=== PATIENT | female | born 1930 | race Caucasian/White ===

== ENCOUNTER 2016-06-15 19:19 | Inpatient (IN) | payer MEDICARE, OTHER ==
[~2016-06-15] VITALS: Ht 165.1 cm; Wt 79.0 kg
[~2016-06-15 19:19] MED LIST: ACET-2047 PO; AMLO5TAB4 PO; ATOR20TA38 GTB; BISA-57 PO; BISA5TAB6 PO; CIPR500T4 PO; DIPH25CA6 PO; DOCU-144 PO; ENOX30DI10 SQ; FAMO-18 GTB; GABA100C14 PO; HYDR-906 PO; LOSA1TAB19 PO; MAGN400O4 PO; PANT40TA4 PO; RISP1TAB3 GTB; SENN-53 PO; SERT-165 GTB
[2016-06-15] MEDS ORDERED: CEFEPIME 2GM/50 ML (PMX) 50 ML IVPB STA (19:52)
[2016-06-15] MEDS ORDERED: SODIUM CHLORIDE 0.9% 1L BAG IV* STA (19:52)
[2016-06-15] MEDS ORDERED: VANCOMYCIN 1 GM (PMX) 250 ML IVPB ONE (20:00)
[2016-06-15 20:20] LABS: ADD UMIC YES; URINE BILIRUBIN (Dip) NEGATIVE (NEGATIVE); URINE BLOOD (Dip) 1+ (NEGATIVE); URINE COLOR YELLOW (YELLOW); URINE GLUCOSE (Dip) NEGATIVE (NEGATIVE); URINE KETONES (Dip) NEGATIVE (NEGATIVE); URINE LEUKOCYTE ESTERASE (Dip) 3+ (NEGATIVE); URINE NITRITE (Dip) NEGATIVE (NEGATIVE); URINE TOTAL PROTEIN (Dip) 1+ (NEGATIVE); URINE UROBILINOGEN (Dip) 0.2 E.U./dL (0.1-1.0)
[2016-06-15 20:26] LABS: ALBUMIN 3.3 g/dl (3.3-4.9)
[2016-06-15 20:27] LABS: CONDITION 1; HEMOGLOBIN 10.8 g/dl (12.0-16.0); LH ANALYZER COMMENTS 1; MEAN CORPUSCULAR HEMOGLOBIN 28.8 pg (29.0-33.0); MEAN CORPUSCULAR HGB CONC 32.7 g/dl (32.0-37.0); MEAN PLATELET VOLUME 8.8 fl (7.4-10.4); PLATELET COUNT 321 10^3/UL (140-440); POTASSIUM 4.7 mmol/L (3.5-5.1); RED BLOOD COUNT 3.75 10^6/ul (4.20-5.40); SUSPECT 1; UNCORRECTED WBC 30.2 10^3/ul (4.8-10.8); WHITE BLOOD COUNT 30.2 10^3/ul (4.8-10.8)
[2016-06-15 20:28] LABS: INR 1.15; PROTIME 14.7 Sec (12.2-14.2); PT RATIO 1.1
[2016-06-15 20:29] LABS: ALBUMIN/GLOBULIN RATIO 0.84; BILIRUBIN,INDIRECT 0.1 mg/dl (0-1.1); BILIRUBIN,TOTAL 0.1 mg/dl (0.2-1.3); CALCIUM 9.2 mg/dl (8.4-10.2); CREATININE 0.95 mg/dl (0.44-1.00); PARTIAL THROMBOPLASTIN TIME 31.9 Sec (25.0-35.0); TOTAL PROTEIN 7.2 g/dl (6.1-8.1)
[2016-06-15 20:30] LABS: BACTERIA,URINE MANY; SQUAMOUS EPITHELIAL CELL,UR MODERATE
[2016-06-15 20:41] LABS: TROPONIN-I 0.085 ng/ml (0.00-0.12)
[2016-06-15] MEDS ORDERED: CRAN450T7 GTB (20:41)
[2016-06-15 20:42] LABS: LYMPHOCYTES # 2.1 10^3/ul (0.8-2.9); MONOCYTE # 1.8 10^3/ul (0.3-0.9); NEUTROPHIL # 26.3 10^3/ul (1.6-7.5)
[2016-06-15] MEDS ORDERED: ASCO500S2 GTB (20:42)
[2016-06-15] MEDS ORDERED: LANT3I SC (20:42)
[2016-06-15] MEDS ORDERED: AMIN30LI GTB (20:46)
[2016-06-15] MEDS ORDERED: IPRA3AMP INHALATION (20:46)
[2016-06-15] MEDS ORDERED: MAG355OR14 GTB (21:04)
[2016-06-15] MEDS ORDERED: UDCOL GTB (21:14)
[2016-06-15 22:30] VITALS: TEMP 99.1
--- NOTE | 2016-06-15 22:59 | ERA ---
ER Documentation Chief Complaint Date/Time DATE: 06/15/16 TIME: 19:20 Chief Complaint sent from SNF for high WBC's and fever today HPI 78-year-old female history of Alzheimer's dementia, Parkinson's disease, diabetes mellitus type 2, hypertension, dyslipidemia, urinary tract infection and sepsis sent to the ED from [facility] for evaluation of fevers up to 101 and leukocytosis. According to family members she was in her usual state of health until 3 days ago and she has been developing fevers become increasingly weak and less responsive. No chest pain or palpitations. No shortness of breath or cough. No abdominal pain, vomiting or diarrhea. Decreasing responsiveness with increasing generalized weakness but no focal weakness or numbness. Fevers up to 101 treated with Tylenol and WBC today was 32,000. History is limited due to the patient's cognitive impairment. ROS All systems reviewed and are negative except as per history of present illness. Medications Home Meds Reported Medications Docusate Sodium* (Docusate Sodium* Liq) 50 Mg/5 Ml Liquid, 100 MG GTB BID, ML 06/15/16 Mag Hydrox/Al Hydrox/Simeth (Maalox Advanced Suspension) Unknown Strength Oral.susp, 30 ML GTB Q6H Y for PRN 06/15/16 Ipratropium-Albuterol (Ipratropium-Albuterol) 0.5-3 Mg/3 Ml Ampul.neb, 3 ML INHALATION Q6, #30 VIAL 06/15/16 Amino Acids/Protein Hydrolys (PRO-STAT LIQUID) 30 Ml Liquid.pkt, 30 ML GTB TID 06/15/16 Ascorbic Acid* (Vitamin C* Liq) 500 Mg/5 Ml Syrup, 500 MG GTB DAILY, ML 06/15/16 Insulin Glargine* (Lantus*) 100 Unit/Ml Soln, 10 UNIT SC QHS, #1 VIAL 06/15/16 Cranberry Fruit (CRANBERRY) 450 Mg Tablet, 450 MG GTB DAILY, TAB 06/15/16 Famotidine* (Pepcid*) 20 Mg Tablet, 20 MG GTB DAILY, #30 TAB 03/22/16 Atorvastatin Calcium* (Atorvastatin Calcium*) 20 Mg Tablet, 20 MG GTB QHS, #30 TAB 03/22/16 Sertraline Hcl* (Sertraline Hcl*) 100 Mg Tablet, 100 MG GTB DAILY, #30 TAB 03/07/16 Risperidone* (Risperidone*) 1 Mg Tablet, 1 MG GTB DAILY, TAB 03/07/16 Discontinued Reported Medications Ciprofloxacin Hcl* (Ciprofloxacin Hcl*) 500 Mg Tablet, 500 MG PO BID, #14 TAB 03/22/16 Gabapentin* (Gabapentin*) 100 Mg Capsule, 200 MG PO TID, #180 CAP 03/22/16 Magnesium Hydroxide* (Milk Of Magnesia*) 400 Mg/5 Ml Oral.susp, 30 ML PO DAILY Y for CONSTIPATION, ML 03/22/16 Hydrocodone/Acetaminophen ([place] 5-325 Tablet) 1 Each Tablet, 2 EACH PO Q6 Y for SEVERE PAIN LEVEL 7-10, TAB 03/22/16 Hydrocodone/Acetaminophen ([place] 5-325 Tablet) 1 Each Tablet, 1 EACH PO Q6 Y for MODERATE PAIN LEVEL 4-6, TAB 03/22/16 Enoxaparin Sodium* (Lovenox*) 30 Mg/0.3 Ml Disp.syrin, 30 MG SQ DAILY, SYR 03/22/16 Docusate Sodium* (Colace*) 100 Mg Capsule, 100 MG PO BID, #60 CAP 03/22/16 Bisacodyl* (Dulcolax*) 5 Mg Tablet.dr, 5 MG PO DAILY, TAB 03/22/16 Acetaminophen* (Acetaminophen*) 650 Mg Tablet, 650 MG PO Q6H Y for PAIN AND OR ELEVATED TEMP, #30 TAB 03/22/16 Amlodipine Besylate* (Norvasc*) 5 Mg Tablet, 5 MG PO DAILY, TAB 03/07/16 Losartan-Hydrochlorothiazide (Losartan-HCTZ) 50-12.5 Mg Tab, 1 TAB PO DAILY, TAB 03/07/16 Diphenhydramine Hcl* (Diphenhydramine Hcl*) 25 Mg Capsule, 25 MG PO TID Y for ITCHING, CAP 03/07/16 Sennosides* (Senna Lax*) 8.6 Mg Tablet, 2 TAB PO DAILY, TAB 03/07/16 Bisacodyl* (Bisacodyl*) 5 Mg Tablet.dr, 5 MG PO DAILY, TAB 03/07/16 Pantoprazole* (Pantoprazole*) 40 Mg Tablet.dr, 40 MG PO DAILY, TAB 03/07/16 Allergies Allergies: Coded Allergies: No Known Allergy (Unverified , 06/15/16) PMhx/Soc Reviewed in chart. As per HPI. half-way facility resident. History of Surgery: Yes (Recent R hip fx 03/07/16 s/p ORIF R hip 03/09/16) Anesthesia Reaction: No Hx Neurological Disorder: Yes (alzheimers) Hx Respiratory Disorders: No Hx Cardiac Disorders: Yes (bradycardia) Hx Psychiatric Problems: Yes (depression) Hx Miscellaneous Medical Probl: Yes (Dementia, Alzheimers, Bradycardia, Depression, GERD, HLD) Hx Alcohol Use: No Hx Substance Use: No Hx Tobacco Use: No Smoking Status: Unknown if ever smoked FmHx Reviewed in chart. Not relevant to presenting complaint. Physical Exam Vitals Vital Signs Date Time Temp Pulse Resp B/P Pulse Ox O2 Delivery O2 Flow Rate FiO2 06/15/16 22:30 99.1 79 20 126/52 95 Nasal Cannula 2.0 06/15/16 20:20 Nasal Cannula 2 06/15/16 19:45 99.5 89 20 115/43 90 Physical Exam Const: Elderly, ill-appearing Head: Atraumatic Eyes: Normal Conjunctiva ENT: Normal External Ears, Nose and Mouth. Mucous membranes are dry. Neck: Full range of motion. No JVD. No meningismus. Resp: Breath sounds diminished at the bases but otherwise Cardio: Tachycardic, regular rate and rhythm, no murmurs Abd: Soft, non tender, non distended. Normal bowel sounds. No rebound or guarding. No masses or abnormal pulsations. G-tube. Skin: No petechiae or rashes Back: No midline or flank tenderness Ext: No cyanosis. 1+ edema. No calf swelling or tenderness. Neur: Lethargic but arousable. No facial droop. No focal deficit observed. Result Diagram: 06/15/16194906/15/161949 Results 24 hrs Laboratory Tests Test 06/15/16 00:03 06/15/16 19:50 06/15/16 20:12 06/15/16 21:25 Lactic Acid Level 1.6mmol/L 1.3mmol/L 1.4mmol/L Activated Partial Thromboplast Time 31.9Sec Alanine Aminotransferase (ALT/SGPT) 13IU/L Albumin 3.3g/dl Albumin/Globulin Ratio 0.84 Alkaline Phosphatase 129IU/L Anion Gap 19 Aspartate Amino Transf (AST/SGOT) 25IU/L Blood Morphology Comment Blood Urea Nitrogen 53mg/dl Calcium Level 9.2mg/dl Carbon Dioxide Level 30mmol/L Chloride Level 99mmol/L Creatinine 0.95mg/dl Differential Comment Direct Bilirubin 0.00mg/dl Globulin 3.90g/dl Glucose Level 147mg/dl Hematocrit 33.0% Hemoglobin 10.8g/dl INR International Normalized Ratio 1.15 Indirect Bilirubin 0.1mg/dl Lymphocytes # 2.110^3/ul Lymphocytes % 7.0% Mean Corpuscular Hemoglobin 28.8pg Mean Corpuscular Hemoglobin Concent 32.7g/dl Mean Corpuscular Volume 88.0fl Mean Platelet Volume 8.8fl Monocytes # 1.810^3/ul Monocytes % 6.0% Neutrophils # 26.310^3/ul Neutrophils % 87.0% Platelet Count 47492^3/UL Potassium Level 4.7mmol/L Prothrombin Time 14.7Sec Prothrombin Time Ratio 1.1 Red Blood Count 3.7510^6/ul Red Cell Distribution Width 17.0% Sodium Level 143mmol/L Total Bilirubin 0.1mg/dl Total Protein 7.2g/dl Troponin I 0.085ng/ml White Blood Count 30.210^3/ul Urine Bacteria MANY Urine Bilirubin NEGATIVE Urine Clarity SLIGHTLY CLOUDY Urine Color YELLOW Urine Glucose NEGATIVE% Urine Hemoglobin 1+ Urine Ketones NEGATIVE Urine Leukocyte Esterase 3+ Urine Microscopic RBC 2-5/HPF Urine Microscopic WBC >200/HPF Urine Nitrite NEGATIVE Urine Specific [place] 1.015 Urine Squamous Epithelial Cells MODERATE Urine Total Protein 1+ Urine Urobilinogen 0.2 E.U./dL Urine pH 7.0 Current Medications Medications (Trade) Dose Ordered Sig/Oscar Route PRN Reason Start Time Stop Time Status Last Admin Dose Admin Sodium Chloride 1860 ml 1,860 ml BOLUS OVER 2 HOURS STAT IV* 06/15/16 19:52 06/15/16 19:54 DC 06/15/16 20:31 Cefepime HCl 50 ml @ 100 mls/hr ONCE STAT IVPB 06/15/16 19:52 06/15/16 20:21 DC 06/15/16 20:31 Vancomycin HCl (Vancocin) 250 ml @ 125 mls/hr ONCE ONCE IVPB 06/15/16 20:00 06/15/16 21:59 DC 06/15/16 21:00 RHYTHM STRIP INTERPRETATION: Sinus tachycardia. Ventricular rate 102. Indication: Sepsis. EKG: TIME: 19: 44. Sinus rhythm. Ventricular rate 89. Normal SD interval. QRS duration 160 ms per incomplete right bundle branch block. Right ventricular hypertrophy. No ectopy. No acute ST segment elevation or depression. EP Interpretation: Abnormal EKG. IMAGING: PROCEDURE: XR Chest. CLINICAL INDICATION: Possible sepsis. TECHNIQUE: Single frontal view of the chest was obtained COMPARISON: 04/05/2016. FINDINGS: Cardiomegaly with mild pulmonary vascular congestion and patchy lung base air space disease. There is no pleural effusion or pneumothorax. Demineralization and degenerative changes in bilateral shoulders, right greater than left. IMPRESSION: Cardiomegaly with mild failure. RPTAT: UU Physician Iliana Date Time Electronically viewed and signed by Physician Iliana on 06/15/2016 20:34 RS/ Procedures/MDM DOCUMENTS REVIEWED: ED nurse, prior ED, prior records, alf facility records MEDICAL DECISION MAKIN-year-old female history of Alzheimer's dementia, Parkinson's disease, diabetes mellitus type 2, hypertension, dyslipidemia, urinary tract infection and sepsis sent to the ED from [facility] for evaluation of fevers up to 101 and leukocytosis. Patient with systemic inflammatory response syndrome and sepsis secondary to urinary tract infection but no severe sepsis or septic shock. Normal saline 30 cc/kg bolus given over 2 hours and antibiotics after cultures. Patient be admitted to telemetry for further evaluation and management. Counseled family regarding diagnosis, diagnostic results and plan for admission. CALLS/CONSULTS: Time 22:15, Dr. Montanez PATIENT CARE TRANSITIONED: Time: 22:15, Dr. Montanez. Departure Diagnosis: Primary Impression: Fever Qualified Code: R50.9 - Fever, unspecified fever cause Additional Impressions: Sepsis Qualified Code: A41.9 - Sepsis, due to unspecified organism Urinary tract infection Qualified Code: N39.0 - Urinary tract infection without hematuria, site unspecified Parkinsons disease Dementia Qualified Code: F03.90 - Dementia without behavioral disturbance, unspecified dementia type Dehydration Condition: Serious EUN HAN MD Jun 15, 2016 22:59
[2016-06-15] MEDS ORDERED: ACETAMINOPHEN 325 MG TAB PO PRN (23:00)
[2016-06-15] MEDS ORDERED: ONDANSETRON 4 MG INJ IV PRN (23:00)
[2016-06-15 23:30] VITALS: Ht 165.1 cm; Wt 79.0 kg
[2016-06-16] VITALS (14 sets, daily range): BP systolic 98–130; BP diastolic 37–86; PULSE 76–85; RESP 15–21
[2016-06-16] MEDS ORDERED: GLUCAGON 1 MG INJ IM PRN
[2016-06-16] MEDS ORDERED: DEXTROSE 50% 50 ML SYRINGE IV PRN ×2
[2016-06-16] MEDS ORDERED: GLUCOSE GEL 15 GRAM TUBE PO PRN ×2
[2016-06-16] MEDS ORDERED: GLUCOSE GEL 15 GRAM TUBE BUCCAL PRN
[2016-06-16] MEDS ORDERED: **FLU VACCINE PREVIOUSLY DISPENSED XX PRN (04:30)
[2016-06-16] MEDS: INSULIN ASPART [NOVOLOG] 3 ML PEN SC SCH ×4 (05:57→17:03)
--- NOTE | 2016-06-16 08:11 | RADRPT ---
PROCEDURE: XR Chest. CLINICAL INDICATION: Possible sepsis. TECHNIQUE: Single frontal view of the chest was obtained COMPARISON: 04/05/2016. FINDINGS: Cardiomegaly with mild pulmonary vascular congestion and patchy lung base air space disease. There is no pleural effusion or pneumothorax. Demineralization and degenerative changes in bilateral shoulders, right greater than left. IMPRESSION: Cardiomegaly with mild failure. RPTAT: UU Physician Iliana Date Time Electronically viewed and signed by Aquilino Acosta Physician on 06/15/2016 20:34 RS/
[2016-06-16] MEDS ORDERED: CIPROFLOXACIN 400MG/D5W 200 ML IVPB SCH (09:00)
[2016-06-16] MEDS: DOCUSATE SODIUM 10 MG/ML (10ML CUP) GTB SCH ×2 (09:05→22:17)
[2016-06-16] MEDS: FAMOTIDINE 20 MG TAB GTB SCH (09:05)
[2016-06-16] MEDS: RISPERIDONE 1 MG TAB GTB SCH (09:05)
[2016-06-16] MEDS: ASCORBIC ACID 500 MG TAB GTB SCH (09:05)
[2016-06-16] MEDS: HEPARIN 5,000 UNIT/0.5 ML SYG SC SCH ×2 (09:11→22:22)
[2016-06-16] MEDS: SERTRALINE 100 MG TAB GTB SCH (10:11)
[2016-06-16] MEDS ORDERED: LOPERAMIDE 2 MG CAP PO ONE (12:00)
[2016-06-16] MEDS ORDERED: VANCOMYCIN IV PER PHARMACY XX SCH (12:00)
[2016-06-16] MEDS ORDERED: ALBUTEROL/IPRATROPIUM (NEB) 3 ML AMP INH SCH (12:00)
[2016-06-16] MEDS ORDERED: AL HYDROX/MG HYDROX/SIMETH 30 ML CUP PO PRN (12:30)
[2016-06-16] MEDS ORDERED: NON-FORMULARY/PATIENT OWN MED (Amino Acids/Protein Hydrolys (Pro-Stat Liquid) 30 ML) GTB SCH (13:00)
[2016-06-16] MEDS: SOD CHLORIDE 0.9% 1,000 ML IV SCH (13:33)
[2016-06-16] MEDS: CEFEPIME 2GM/50 ML (PMX) 50 ML IVPB SCH ×2 (13:34→22:17)
--- NOTE | 2016-06-16 15:03 | HP ---
DATE OF ADMISSION: 06/15/2016 TIME SEEN: 3:30 CHIEF COMPLAINT: Fever with elevated white count. HISTORY OF PRESENT ILLNESS: The patient is an 86-year-old female with a history of diabetes, hyperte nsion, dyslipidemia, Alzheimer dementia, Parkinson's disease ____ half-way facility with a fe claudia of 101 and leukocytosis. The patient ____ and noted to be less responsive and weak. When she pr esents to the ER she had a temperature of 99.5 but her white count was 30,000. A urinalysis consist ent with ____ urine ____. The patient was given vancomycin and cefepime ____ and REVIEW OF SYSTEMS: Unable to ____ because of patient's dementia. PAST MEDICAL HISTORY: As per HPI. PAST SURGICAL HISTORY: Hip surgery. SOCIAL HISTORY: No reported history of tobacco, alcohol or illicit drug use. ALLERGIES: NO KNOWN DRUG ALLERGIES. HOME MEDICATIONS: 1. Atrovent. 2. Lipitor. 3. Risperidone. 4. Sertraline. 5. Colace. 6. ____. 7. MiraLax. 8. Insulin. 9. Vitamin C. 10. ____. PHYSICAL EXAMINATION: VITAL SIGNS: Stable. GENERAL: No acute distress. She is ____. HEENT: No JVD. Pupils are reactive to light. CARDIOVASCULAR: Regular rate and rhythm. LUNGS: Clear. ABDOMEN: Soft, nontender. No grimaces noted on palpation. Positive bowel sounds. EXTREMITIES: No edema. LABORATORY: WBC 30,000. Hemoglobin 10.8, BUN 53. Otherwise, CBC and CMP within normal limits. IMPRESSION: 1. Sepsis as evidenced by leukocytosis and tachypnea secondary to severe urinary tract infection. 2. Urinary tract infection. 3. History of Alzheimer's dementia. 4. Hypertension. 5. Dyslipidemia. 6. Diabetes. 7. Depression. PLAN: She will be placed on IV antibiotic. We will follow up on the blood culture and urine cultur e as well as stool culture results. She will be continued with her home medication with adjustment as needed. Consider infectious disease consult. Dictated By: BEKAH PEMBERTON/WHITNEY Conf#: [id number] DID#: [id number]
--- NOTE | 2016-06-16 15:17 | PN ---
DATE: 06/16/2016 06/16/2016 SUBJECTIVE: The patient had no acute events overnight. OBJECTIVE VITAL SIGNS: Stable. GENERAL: The patient is lying in bed, has what looks like a resting tremor but otherwise no acute d istress. HEENT: Pupils equal, round, react to light. Extraocular muscles intact. NECK: Supple, no thyromegaly. LUNGS: Clear to auscultation bilaterally. CARDIOVASCULAR: S1, S2 heard. No rubs or gallops. ABDOMEN: Soft, nontender, nondistended. Normal bowel sounds. No rebound or guarding. MUSCULOSKELETAL: No lower extremity edema bilaterally. NEUROLOGIC: No focal deficits. LABORATORY DATA: There is no new CBC or basic metabolic panel from this morning. ASSESSMENT AND PLAN: This is an 86-year-old [facility] secondary to urinary tract infection. 1. Sepsis, again secondary to urinary tract infection. Continue broad spectrum antibiotics. Follo w up final culture results, get an ID consult, Tylenol p.r.n. pain and fevers, IV fluids as well. S he is also having fevers. 2. History of type 2 diabetes. Continue to monitor for now. She is on sliding scale insulin. Fol low up A1c. 3. History of Alzheimer dementia. She is on Sertraline and Risperidone. Continue to monitor for n ow. 4. High cholesterol. Continue statin. 5. Prior urinary tract infection. Again, we are going to get an ID consult for that. 6. Hypertension. Continue to monitor for now. She should be on hydralazine p.r.n. Monitor vital signs very carefully. 7. Gastrointestinal prophylaxis. H2 shin. 8. Deep venous thrombosis prophylaxis. Heparin subcutaneously. Dictated By: DANILO HONEYCUTT Conf#: [id number] DID#: [id number]
[2016-06-16] MEDS: VANCOMYCIN 750 MG in SOD CHLORIDE 0.9% 150 ML IVPB SCH (17:03)
--- NOTE | 2016-06-16 17:57 | CONS ---
DATE OF ADMISSION: 06/15/2016 DATE OF CONSULTATION: 06/16/2016 TYPE OF CONSULTATION: Infectious Disease. REASON FOR CONSULTATION: Antibiotic management. HISTORY OF PRESENT ILLNESS: Medina Davies is an 86-year-old [place] female with numerou s problems who comes in with fever and leukocytosis. The patient's past problems include: 1. Adult-onset diabetes mellitus. 2. Hypertension. 3. Dyslipidemia. 4. Alzheimer dementia. 5. Severe Parkinson disease. She presents now with a fever of 101 and leukocytosis. On admission, her white count was 30.2, H an d H of 10.8 and 33, platelet count of 321,000. BUN and creatinine are 53 over 0.95. Her urine is g reater than 200 white cells per high-power field. She has 3+ leukocytosis. Chest x-ray shows cardi omegaly with mild failure. Urine culture is too young to evaluate. The patient was started on vanc omycin and cefepime. PAST MEDICAL HISTORY: Operations as outlined. FAMILY HISTORY: Noncontributory. SOCIAL HISTORY: She does not smoke, drink or abuse drugs. ALLERGIES: NONE TO PENICILLIN, SULFA OR FOODS. SURGICAL HISTORY: She had hip surgery in the past. MEDICATIONS: Per chart. REVIEW OF SYSTEMS: Noncontributory. PHYSICAL EXAMINATION: GENERAL: The patient is a well-developed, well-nourished elderly female who has severe tremors. VITAL SIGNS: Stable. She is afebrile. SKIN: Without generalized rash. HEENT: Within normal limits. NECK: Supple. LYMPH NODES: None palpable. CHEST: Decreased breath sounds at the bases. HEART: Without murmur or gallop. ABDOMEN: Soft, nontender without organosplenomegaly or masses. EXTREMITIES: Without cyanosis, clubbing or edema. RECTAL AND GENITAL: Deferred. NEUROLOGIC: The patient has severe Parkinson disease. She also has senile dementia. IMPRESSION AND PLAN: The patient has blood cultures, urine cultures, stool cultures done. She is o n vancomycin and cefepime. She has a urinary tract infection and will tailor her antibiotics once w e get the results back. I will dictate my findings to the hospitalists. Dictated By: NAT JAMISON MD, JD/WHITNEY Conf#: [id number] DID#: [id number]
[2016-06-16] MEDS ORDERED: VANCOMYCIN 1.25 GM in SOD CHLORIDE 0.9% 250 ML IVPB SCH (18:00)
[2016-06-16] MEDS ORDERED: INSULIN GLARGINE [LANtus] 3 ML PEN SC SCH (21:00)
[2016-06-16] MEDS: ALBUTEROL/IPRATROPIUM (NEB) 3 ML AMP INH SCH (21:34)
[2016-06-16] MEDS: ATORVASTATIN 20 MG TAB GTB SCH (22:17)
[2016-06-16] MEDS: INSULIN GLARGINE [LANtus] 3 ML PEN SC SCH (22:51)
[2016-06-17] VITALS (12 sets, daily range): BP systolic 90–130; BP diastolic 51–89; PULSE 70–91; RESP 15–20
[2016-06-17] MEDS: SOD CHLORIDE 0.9% 1,000 ML IV SCH ×4 (01:50→23:18)
[2016-06-17] MEDS: ALBUTEROL/IPRATROPIUM (NEB) 3 ML AMP INH SCH ×4 (02:00→21:00)
[2016-06-17] MEDS: INSULIN ASPART [NOVOLOG] 3 ML PEN SC SCH ×4 (05:27→17:21)
[2016-06-17 07:38] LABS: BASOPHILS % 0.1 % (0.0-2.0); EOSINOPHILS # 0.2 10^3/ul (0.0-0.5); EOSINOPHILS % 1.1 % (0.0-7.0); HEMATOCRIT 26.9 % (37.0-47.0); LYMPHOCYTES % 10.4 % (15.0-51.0); MEAN CORPUSCULAR HEMOGLOBIN 29.5 pg (29.0-33.0); MEAN CORPUSCULAR HGB CONC 33.4 g/dl (32.0-37.0); MEAN CORPUSCULAR VOLUME 88.5 fl (82.0-101.0); MEAN PLATELET VOLUME 8.9 fl (7.4-10.4); MONOCYTE # 0.1 10^3/ul (0.3-0.9); MONOCYTES % 0.4 % (0.0-11.0); NEUTROPHIL # 17.3 10^3/ul (1.6-7.5); PLATELET COUNT 289 10^3/UL (140-440); RED BLOOD COUNT 3.04 10^6/ul (4.20-5.40); RED CELL DISTRIBUTION WIDTH 17.1 % (11.5-14.5); UNCORRECTED WBC 19.7 10^3/ul (4.8-10.8); WHITE BLOOD COUNT 19.7 10^3/ul (4.8-10.8)
[2016-06-17 07:41] LABS: CONDITION 1; LH ANALYZER COMMENTS 1
[2016-06-17 08:52] LABS: CALCIUM 8.5 mg/dl (8.4-10.2); CREATININE 0.84 mg/dl (0.44-1.00); POTASSIUM 4.4 mmol/L (3.5-5.1)
[2016-06-17] MEDS ORDERED: NON-FORMULARY/PATIENT OWN MED (Cranberry Fruit (Cranberry) 450 MG) GTB SCH (09:00)
[2016-06-17] MEDS: DOCUSATE SODIUM 10 MG/ML (10ML CUP) GTB SCH ×2 (09:00→21:13)
[2016-06-17] MEDS: FAMOTIDINE 20 MG TAB GTB SCH (09:52)
[2016-06-17] MEDS: RISPERIDONE 1 MG TAB GTB SCH (09:52)
[2016-06-17] MEDS: SERTRALINE 100 MG TAB GTB SCH (09:52)
[2016-06-17] MEDS: ASCORBIC ACID 500 MG TAB GTB SCH (09:52)
[2016-06-17] MEDS: HEPARIN 5,000 UNIT/0.5 ML SYG SC SCH ×2 (09:53→21:23)
[2016-06-17] MEDS: CEFEPIME 2GM/50 ML (PMX) 50 ML IVPB SCH ×2 (09:55→21:22)
--- NOTE | 2016-06-17 10:10 | CONS ---
DATE OF ADMISSION: 06/15/2016 DATE OF CONSULTATION: 06/17/2016 PALLIATIVE CARE CONSULTATION HISTORY OF PRESENT ILLNESS: This is an 86-year-old female who was admitted to [facility] with sepsis syndrome. We have an incomplete database. There are no family members at the [facility] and everything that I am dictating is based upon review of the patient's medical records. Es sentially she was seen in the emergency room for mental status changes, leukocytosis, febrile to 101 degrees, a white blood cell count of 30,000, and a UA consistent with greater than 200 white blood cells per high power field, 3+ leukocytosis. Chest x-ray is still pending. The patient was seen an d examined, and started on broad spectrum IV antibiotic coverage. Infectious disease was called, Dr Ramya Harrison, who has seen and evaluated the patient. Apparently, the patient has a history of alzheimers dementia and Parkinson's disease. She was noncommunicative when I saw her in the room, ephraim moya to answer any questions. She does track me only. She is a FULL CODE, according to the [facility]. MEDICATIONS: Please refer to reconciliation sheets. ALLERGIES: NO KNOWN DRUG ALLERGIES. MAJOR MEDICAL PROBLEMS IN THE PAST: Type 2 diabetes, hypertension, dyslipidemia, dementia secondary to Parkinson's disease, presumably. SOCIAL HISTORY: Apparently lives in a [place] [facility] unit. FAMILY HISTORY: Unknown. REVIEW OF SYSTEMS: Cannot be obtained. PHYSICAL EXAMINATION: GENERAL: Shows a well-nourished, well-developed female, who appears in no major acute distress. VITAL SIGNS: Blood pressure 119/57, pulse of 73 and regular, respirations of 18, temperature 98.9 d egrees. HEENT: She is normocephalic and atraumatic. Anicteric, acyanotic. CHEST: On examination chest shows bilateral clear breath sounds throughout both lung viera. COR: S1, S2, without S3, S4, murmur, gallop or rub. Normal rate, normal rhythm. ABDOMEN: On examination abdomen grossly benign, without organomegaly, masses, rebound. Peritoneal s igns grossly on examination. ASSESSMENT AND PLAN: This is an 86-year-old female who presents to [facility] wit h sepsis syndrome, but she is not hemodynamically compromised. I will contact family members and sc hedule a family conference as soon as possible to establish ongoing level of care. This patient giordano s not appear to be in any acute major distress and looks like she will survive this hospitalization, but I will speak to family members about her code status. She is extremely high risk of readmissio n with the same diagnosis, having presented with her first diagnosis of sepsis syndrome. Dictated By: WIL PARRISH MD LP/NTS Conf#: [id number] DID#: [id number]
--- NOTE | 2016-06-17 14:44 | PN ---
Date/Time of Note Date/Time of Note DATE: 06/17/16 TIME: 14:34 Assessment/Plan VTE Prophylaxis VTE Prophylaxis Intervention: heparin Lines/Catheters IV Catheter Type (from Nrs): Peripheral IV Urinary Cath still in place: Yes Reason Cath still needed: other (indicate) Assessment/Plan Assessment/Plan 1. Urinary tract infection, on maxipine/vanco, awaiting for culture 2. Sepsis, IVF and antibiotics 3. Diabetes mellitus, on insulins 3. Alzheimer dementia. She is on Sertraline and Risperidone. 4. High cholesterol. Continue statin. 5. Tremor, likely Parkinson's 6. Hypertension. hypotension now 7. Dysphagia, s/p PEG with tube feeding 8. Gastrointestinal prophylaxis. H2 shin. 9. Deep venous thrombosis prophylaxis. Heparin subcutaneously. Subjective 24 Hr Interval Summary Free Text/Dictation alert, nonverbal Exam/Review of Systems Vital Signs Vitals Vital Signs Date Time Temp Pulse Resp B/P Pulse Ox O2 Delivery O2 Flow Rate FiO2 06/17/16 12:57 96 2.0 06/17/16 12:57 78 20 Nasal Cannula 06/17/16 11:41 97.5 113/53 06/17/16 01:50 28 Intake and Output 06/16/16 06/16/16 06/17/16 15:00 23:00 07:00 Intake Total 50 ml 760 ml 1910 ml Output Total 750 ml 900 ml Balance 50 ml 10 ml 1010 ml Exam Constitutional: alert, non-verbal Head: atraumatic, normocephalic Eyes: PERRL, nl conjunctiva ENMT: nl external ears & nose, nl lips & teeth, nl nasal mucosa & septum Neck: non-tender, supple Respiratory: clear to auscultation, normal air movement, No congested cough, No crackles/rales, No diminished breath sounds, No intercostal retraction, No labored breathing, No respirations, No tactile fremitus, No wheezing Cardiovascular: nl pulses, regular rate and rhythm, No S3, No S4, No bruits, No diastolic murmur, No edema, No gallop, No irregular rhythm, No jugular venous distention (JVD), No murmurs/extra sounds, No rub, No systolic murmur Gastrointestinal: nl liver, spleen, non-tender, soft, No ascites, No bowel sounds, No distended, No firm, No hepatomegaly, No mass , No rebound or guarding, No splenomegaly, No surgical scars, No tender Musculoskeletal: nl extremities to inspection Extremities: normal pulses, other, No calf tenderness, No clubbing, No cyanosis, No edema, No palpable cord, No pitting pedal edema, No tenderness 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, confused, nl mental status, nl speech, nl strength, other (tremors) Skin: rash or lesions Lymph: nl lymph nodes Results Result Diagram: 06/17/16 0655 06/17/16 0655 Results 24 hrs Laboratory Tests Test 06/16/16 17:01 06/16/16 22:20 06/17/16 00:25 06/17/16 05:19 Bedside Glucose 111 117 116 141 Test 06/17/16 06:55 06/17/16 11:58 Anion Gap 15 Basophils # 0.0 Basophils % 0.1 Blood Morphology Comment Blood Urea Nitrogen 41 #H Calcium Level 8.5 Carbon Dioxide Level 28 Chloride Level 110 # Creatinine 0.84 Eosinophils # 0.2 Eosinophils % 1.1 Glucose Level 122 Hematocrit 26.9 L Hemoglobin 9.0 L Lymphocytes # 2.0 Lymphocytes % 10.4 L Mean Corpuscular Hemoglobin 29.5 Mean Corpuscular Hemoglobin Concent 33.4 Mean Corpuscular Volume 88.5 Mean Platelet Volume 8.9 Monocytes # 0.1 L Monocytes % 0.4 Neutrophils # 17.3 H Neutrophils % 88.0 H Nucleated Red Blood Cells # 0.0 Nucleated Red Blood Cells % 0.0 Platelet Count 289 Potassium Level 4.4 Red Blood Count 3.04 L Red Cell Distribution Width 17.1 H Sodium Level 149 H White Blood Count 19.7 #H Bedside Glucose 107 Medications Medications Current Medications Heparin Sodium (Porcine) (Heparin (5000 Units/0.5 ml)) 5,000 unit BID SC Last administered on 06/17/16 09:53; Admin Dose 5,000 UNIT; Start 06/16/16 at 09:00 Insulin Aspart (Novolog Insulin Pen) NOVOLOG *MILD* ALGORITHM Q6 SC Last administered on 06/17/16 05:27; Admin Dose 1 UNIT; Start 06/16/16 at 00:00 Insulin Glargine (Lantus) 10 unit QHS SC Last administered on 06/16/16 22:51; Admin Dose 10 UNIT; Start 06/16/16 at 21:00 Miscellaneous Information 1 ea NOTE XX ; Start 06/16/16 at 00:00 Glucose (Glutose) 15 gm Q15M PRN PO DECREASED GLUCOSE; Start 06/16/16 at 00:00 Glucose (Glutose) 22.5 gm Q15M PRN PO DECREASED GLUCOSE; Start 06/16/16 at 00:00 Dextrose (D50w Syringe) 25 ml Q15M PRN IV DECREASED GLUCOSE; Start 06/16/16 at 00:00 Dextrose (D50w Syringe) 50 ml Q15M PRN IV DECREASED GLUCOSE; Start 06/16/16 at 00:00 Glucagon (Glucagen) 1 mg Q15M PRN IM DECREASED GLUCOSE; Start 06/16/16 at 00:00 Glucose (Glutose) 15 gm Q15M PRN BUCCAL DECREASED GLUCOSE; Start 06/16/16 at 00: 00 Miscellaneous Information (Flu Vaccine Previously Dispensed) FLU VACCINE PREVIOU... NOTE PRN XX NOTE; Start 06/16/16 at 04:30 Ascorbic Acid (Vitamin C) 500 mg DAILY GTB Last administered on 06/17/16 09:52 ; Admin Dose 500 MG; Start 06/16/16 at 09:00 Atorvastatin Calcium (Lipitor) 20 mg QHS GTB Last administered on 06/16/16 22: 17; Admin Dose 20 MG; Start 06/16/16 at 21:00 Docusate Sodium (Colace Liquid Cup) 100 mg BID GTB Last administered on 22:17; Admin Dose 100 MG; Start 06/16/16 at 09:00 Famotidine (Pepcid) 20 mg DAILY GTB Last administered on 06/17/16 09:52; Admin Dose 20 MG; Start 06/16/16 at 09:00 Risperidone (Risperdal) 1 mg DAILY GTB Last administered on 06/17/16 09:52; Admin Dose 1 MG; Start 06/16/16 at 09:00 Sertraline HCl 100 mg 100 mg DAILY GTB Last administered on 06/17/16 09:52; Admin Dose 100 MG; Start 06/16/16 at 09:00 Cefepime HCl (Maxipime 2gm/50 ml (Pmx)) 50 ml @ 100 mls/hr Q12 IVPB Last administered on 06/17/16 09:55; Admin Dose 100 MLS/HR; Start 06/16/16 at 12:00 Al Hydrox/Mg Hydrox/ Simethicone 30 ml 30 ml Q6H PRN PO GAS/BLOATING; Start 06/16/16 at 12:30 Sodium Chloride 1,000 ml @ 75 mls/hr [id number] IV Last administered on 06/17/16 06:22; Admin Dose 75 MLS/HR; Start 06/16/16 at 12:30 Vancomycin HCl/ Sodium Chloride (Vancocin/NS) 150 ml @ 75 mls/hr Q24H IVPB Last administered on 06/16/16 17:03; Admin Dose 75 MLS/HR; Start 06/16/16 at 18: 00 RICK DAVID MD Jun 17, 2016 14:44
[2016-06-17] MEDS: VANCOMYCIN 750 MG in SOD CHLORIDE 0.9% 150 ML IVPB SCH (17:26)
--- NOTE | 2016-06-17 17:51 | RADRPT ---
PROCEDURE: XR Chest. CLINICAL INDICATION: Shortness of breath. TECHNIQUE: Single frontal view. COMPARISON: 06/15/2016. FINDINGS: There is mild interstitial disease bilaterally consistent with pulmonary edema, unchanged. The lung s are otherwise clear with no focal abnormality. The heart is enlarged. There is no pleural effusion. There is no pneumothorax. IMPRESSION: 1. Mild pulmonary edema, unchanged. 2. Cardiomegaly. RPTAT: QQ .Aung Newton MD, MD Date Time Electronically viewed and signed by .Aung Newton MD, MD on 06/17/2016 16:32 .R/
--- NOTE | 2016-06-17 18:05 | PN ---
DATE: 06/17/2016 SUBJECTIVE: No acute changes. The patient is lying comfortably in bed. She is nonverbal, noncommu nicative, afebrile. WBC today 19.7, H and H 9 and 26.9, platelets 289, neutrophils 88, no bands. BUN 41, creatinine 0.8 4. MICROBIOLOGY: Blood cultures negative. Urine culture growing gram-negative rods. DIAGNOSTICS: Chest x-ray on admission revealed cardiomegaly with mild failure. ANTIMICROBIALS: 1. Vancomycin. 2. Cefepime INDWELLINGS: Gunter. PHYSICAL EXAMINATION: GENERAL: This is a chronically ill-appearing, elderly woman who is lying comfortably in bed. HEENT: Head atraumatic, normocephalic. Sclerae anicteric. Buccal mucosa dry. NECK: Supple. CHEST: Rise symmetrical. Breath sounds decreased to bases. HEART: S1, S2. ABDOMEN: Soft, bowel tones present. EXTREMITIES: Without cyanosis. ASSESSMENT: 1. Sepsis with fevers and leukocytosis secondary to #2. 2. Gram-negative rods urinary tract infection. 3. Possible pneumonia with hypoxemia. 4. Dysphagia. 5. Alzheimer dementia. 6. Diabetes, blood sugars controlled below 180. PLAN: The patient remains stable. Continue present care. Swab nares for MRSA. Await for final cu ltures. Follow chest x-ray in a.m. Continue anti-aspiration measures. Dictated By: EPHRAIM RYAN TITLE I INSTRUCTIONAL ASSISTANT for NAT SEARS/NTS Conf#: [id number] DID#: [id number]
[2016-06-17] MEDS: ATORVASTATIN 20 MG TAB GTB SCH (21:13)
[2016-06-17] MEDS: INSULIN GLARGINE [LANtus] 3 ML PEN SC SCH (21:24)
[2016-06-18] MEDS: ALBUTEROL/IPRATROPIUM (NEB) 3 ML AMP INH SCH ×4 (03:18→20:45)
[2016-06-18] MEDS: SOD CHLORIDE 0.9% 1,000 ML IV SCH (04:30)
[2016-06-18] MEDS: INSULIN ASPART [NOVOLOG] 3 ML PEN SC SCH ×4 (06:00→18:42)
[2016-06-18 06:10] LABS: BASOPHILS % 0.3 % (0.0-2.0); EOSINOPHILS # 0.2 10^3/ul (0.0-0.5); EOSINOPHILS % 1.5 % (0.0-7.0); HEMATOCRIT 27.7 % (37.0-47.0); HEMOGLOBIN 9.3 g/dl (12.0-16.0); LYMPHOCYTES # 2.3 10^3/ul (0.8-2.9); LYMPHOCYTES % 13.3 % (15.0-51.0); MEAN CORPUSCULAR HEMOGLOBIN 29.7 pg (29.0-33.0); MEAN CORPUSCULAR HGB CONC 33.6 g/dl (32.0-37.0); MEAN CORPUSCULAR VOLUME 88.5 fl (82.0-101.0); MEAN PLATELET VOLUME 9.4 fl (7.4-10.4); MONOCYTE # 0.2 10^3/ul (0.3-0.9); MONOCYTES % 1.5 % (0.0-11.0); NEUTROPHIL # 14.1 10^3/ul (1.6-7.5); NEUTROPHILS % 83.4 % (39.0-77.0); PLATELET COUNT 319 10^3/UL (140-440); RED BLOOD COUNT 3.13 10^6/ul (4.20-5.40); RED CELL DISTRIBUTION WIDTH 17.4 % (11.5-14.5); UNCORRECTED WBC 16.9 10^3/ul (4.8-10.8); WHITE BLOOD COUNT 16.9 10^3/ul (4.8-10.8)
[2016-06-18 06:19] LABS: POTASSIUM 4.2 mmol/L (3.5-5.1)
[2016-06-18 06:21] LABS: CREATININE 0.81 mg/dl (0.44-1.00)
[2016-06-18 06:22] LABS: CALCIUM 8.6 mg/dl (8.4-10.2)
[2016-06-18 06:47] LABS: CONDITION 1; LH ANALYZER COMMENTS 1; SUSPECT 1
[2016-06-18 07:56] VITALS: BP 141/60; RESP 20
[2016-06-18] MEDS: ASCORBIC ACID 500 MG TAB GTB SCH (09:13)
[2016-06-18] MEDS: FAMOTIDINE 20 MG TAB GTB SCH (09:13)
[2016-06-18] MEDS: SERTRALINE 100 MG TAB GTB SCH (09:13)
[2016-06-18] MEDS: RISPERIDONE 1 MG TAB GTB SCH (09:13)
[2016-06-18] MEDS: DOCUSATE SODIUM 10 MG/ML (10ML CUP) GTB SCH ×2 (09:13→21:06)
[2016-06-18] MEDS: HEPARIN 5,000 UNIT/0.5 ML SYG SC SCH ×2 (09:25→21:07)
[2016-06-18] MEDS: CEFEPIME 2GM/50 ML (PMX) 50 ML IVPB SCH ×2 (09:45→21:11)
[2016-06-18] MEDS ORDERED: ACETAMINOPHEN 650MG/20.3ML CUP GTB PRN (10:00)
--- NOTE | 2016-06-18 11:33 | RADRPT ---
PROCEDURE: XR Chest. CLINICAL INDICATION: Cough and fever. TECHNIQUE: Single frontal view. COMPARISON: 06/17/2016. FINDINGS: Mild pulmonary edema is unchanged. Lungs are otherwise clear. The heart is enlarged. There is no pleural effusion. There is no pneumothorax. IMPRESSION: 1. Mild pulmonary edema, unchanged. 2. Cardiomegaly. 3. No other change from 06/17/2016. RPTAT: QQ .Aung Newton MD, MD Date Time Electronically viewed and signed by .Aung Newton MD, MD on 06/18/2016 10:20 .R/
--- NOTE | 2016-06-18 13:43 | PN ---
Date/Time of Note Date/Time of Note DATE: 06/18/16 TIME: 13:38 Assessment/Plan VTE Prophylaxis VTE Prophylaxis Intervention: heparin Lines/Catheters IV Catheter Type (from Nrs): Peripheral IV Urinary Cath still in place: Yes Reason Cath still needed: other (indicate) Assessment/Plan Assessment/Plan 1. Urinary tract infection, E. Coli, on maxipine, still spiking fever, renal US 2. Sepsis, IVF and antibiotics 3. Diabetes mellitus, on insulins 3. Alzheimer dementia. She is on Sertraline and Risperidone. 4. High cholesterol. Continue statin. 5. Tremor, likely Parkinson's 6. Hypertension. hypotension now 7. Dysphagia, s/p PEG with tube feeding 8. Gastrointestinal prophylaxis. H2 shin. 9. Deep venous thrombosis prophylaxis. Heparin Subjective 24 Hr Interval Summary Free Text/Dictation alert, nonverbal Exam/Review of Systems Vital Signs Vitals Vital Signs Date Time Temp Pulse Resp B/P Pulse Ox O2 Delivery O2 Flow Rate FiO2 06/18/16 07:56 101.0 78 20 141/60 97 06/18/16 07:55 2.0 06/18/16 07:55 Nasal Cannula 06/17/16 01:50 28 Intake and Output 06/17/16 06/17/16 06/18/16 15:00 23:00 07:00 Intake Total 360 ml 2462 ml Output Total 900 ml 500 ml Balance -540 ml 1962 ml Exam Constitutional: alert, non-verbal Head: atraumatic, normocephalic Eyes: EOMI, nl conjunctiva, nl lids ENMT: nl external ears & nose, nl lips & teeth, nl nasal mucosa & septum Neck: non-tender, supple Respiratory: clear to auscultation, normal air movement, No congested cough, No crackles/rales, No diminished breath sounds, No intercostal retraction, No labored breathing, No respirations, No tactile fremitus, No wheezing Cardiovascular: nl pulses, regular rate and rhythm, No S3, No S4, No bruits, No diastolic murmur, No edema, No gallop, No irregular rhythm, No jugular venous distention (JVD), No murmurs/extra sounds, No rub, No systolic murmur Gastrointestinal: nl liver, spleen, non-tender, soft, No ascites, No bowel sounds, No distended, No firm, No hepatomegaly, No mass , No rebound or guarding, No splenomegaly, No surgical scars, No tender Musculoskeletal: nl extremities to inspection Extremities: normal pulses, No calf tenderness, No clubbing, No cyanosis, No edema, No palpable cord, No pitting pedal edema, No tenderness 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, nl mental status, nl speech, nl strength Skin: nl turgor, rash or lesions Results Result Diagram: 06/18/16 0453 06/18/16 0453 Results 24 hrs Laboratory Tests Test 06/17/16 17:18 06/18/16 00:02 06/18/16 04:53 06/18/16 06:16 Bedside Glucose 101 137 140 Anion Gap 13 Basophils # 0.0 Basophils % 0.3 Blood Morphology Comment Blood Urea Nitrogen 36 H Calcium Level 8.6 Carbon Dioxide Level 29 Chloride Level 112 H Creatinine 0.81 Eosinophils # 0.2 Eosinophils % 1.5 Glucose Level 136 Hematocrit 27.7 L Hemoglobin 9.3 L Lymphocytes # 2.3 Lymphocytes % 13.3 L Mean Corpuscular Hemoglobin 29.7 Mean Corpuscular Hemoglobin Concent 33.6 Mean Corpuscular Volume 88.5 Mean Platelet Volume 9.4 Monocytes # 0.2 L Monocytes % 1.5 Neutrophils # 14.1 H Neutrophils % 83.4 H Nucleated Red Blood Cells # 0.0 Nucleated Red Blood Cells % 0.0 Platelet Count 319 Potassium Level 4.2 Red Blood Count 3.13 L Red Cell Distribution Width 17.4 H Sodium Level 150 H White Blood Count 16.9 H Test 06/18/16 12:16 Bedside Glucose 126 Medications Medications Current Medications Heparin Sodium (Porcine) (Heparin (5000 Units/0.5 ml)) 5,000 unit BID SC Last administered on 06/18/16 09:25; Admin Dose 5,000 UNIT; Start 06/16/16 at 09:00 Insulin Aspart (Novolog Insulin Pen) NOVOLOG *MILD* ALGORITHM Q6 SC Last administered on 06/17/16 05:27; Admin Dose 1 UNIT; Start 06/16/16 at 00:00 Insulin Glargine (Lantus) 10 unit QHS SC Last administered on 06/17/16 21:24; Admin Dose 10 UNIT; Start 06/16/16 at 21:00 Miscellaneous Information 1 ea NOTE XX ; Start 06/16/16 at 00:00 Glucose (Glutose) 15 gm Q15M PRN PO DECREASED GLUCOSE; Start 06/16/16 at 00:00 Glucose (Glutose) 22.5 gm Q15M PRN PO DECREASED GLUCOSE; Start 06/16/16 at 00:00 Dextrose (D50w Syringe) 25 ml Q15M PRN IV DECREASED GLUCOSE; Start 06/16/16 at 00:00 Dextrose (D50w Syringe) 50 ml Q15M PRN IV DECREASED GLUCOSE; Start 06/16/16 at 00:00 Glucagon (Glucagen) 1 mg Q15M PRN IM DECREASED GLUCOSE; Start 06/16/16 at 00:00 Glucose (Glutose) 15 gm Q15M PRN BUCCAL DECREASED GLUCOSE; Start 06/16/16 at 00: 00 Miscellaneous Information (Flu Vaccine Previously Dispensed) FLU VACCINE PREVIOU... NOTE PRN XX NOTE; Start 06/16/16 at 04:30 Ascorbic Acid (Vitamin C) 500 mg DAILY GTB Last administered on 06/18/16 09:13 ; Admin Dose 500 MG; Start 06/16/16 at 09:00 Atorvastatin Calcium (Lipitor) 20 mg QHS GTB Last administered on 06/17/16 21: 13; Admin Dose 20 MG; Start 06/16/16 at 21:00 Docusate Sodium (Colace Liquid Cup) 100 mg BID GTB Last administered on 09:13; Admin Dose 100 MG; Start 06/16/16 at 09:00 Famotidine (Pepcid) 20 mg DAILY GTB Last administered on 06/18/16 09:13; Admin Dose 20 MG; Start 06/16/16 at 09:00 Risperidone (Risperdal) 1 mg DAILY GTB Last administered on 06/18/16 09:13; Admin Dose 1 MG; Start 06/16/16 at 09:00 Sertraline HCl 100 mg 100 mg DAILY GTB Last administered on 06/18/16 09:13; Admin Dose 100 MG; Start 06/16/16 at 09:00 Cefepime HCl (Maxipime 2gm/50 ml (Pmx)) 50 ml @ 100 mls/hr Q12 IVPB Last administered on 06/18/16 09:45; Admin Dose 100 MLS/HR; Start 06/16/16 at 12:00 Al Hydrox/Mg Hydrox/ Simethicone 30 ml 30 ml Q6H PRN PO GAS/BLOATING; Start 06/16/16 at 12:30 Sodium Chloride 1,000 ml @ 75 mls/hr [id number] IV Last administered on 06/17/16 23:18; Admin Dose 75 MLS/HR; Start 06/16/16 at 12:30 Vancomycin HCl/ Sodium Chloride (Vancocin/NS) 150 ml @ 75 mls/hr Q24H IVPB Last administered on 06/17/16 17:26; Admin Dose 75 MLS/HR; Start 06/16/16 at 18: 00 Acetaminophen (Tylenol Liquid) 650 mg Q4H PRN GTB PAIN AND OR ELEVATED TEMP; Start 06/18/16 at 10:00 Miscellaneous Information (*Rx Drug Level Order Reminder*) VANCO TROUGH @ 1, 700 ON... ONCE ONCE XX ; Start 06/18/16 at 17:00; Stop 06/18/16 at 17:01 RICK DAVID MD Jun 18, 2016 13:42
[2016-06-18] MEDS: SOD CHLORIDE 0.45% 1,000 ML IV SCH (14:11)
--- NOTE | 2016-06-18 16:45 | PN ---
DATE: 06/18/2016 SUBJECTIVE: No changes. Patient was transferred to med/surg floor. Spiked a fever of 101 today cu ltures are pending. WBC today 16.9, platelets 319, neutrophils 83.4, BUN 36, creatinine 0.81. MICROBIOLOGY: Urine culture growing E. coli susceptible to cefotaxime, Bactrim, Ancef. ANTIMICROBIALS: The patient is on: 1. IV vancomycin. 2. Cefepime. DIAGNOSTICS: Chest x-ray this morning revealed mild pulmonary edema. INDWELLINGS: Gunter catheter. PHYSICAL EXAMINATION: GENERAL: This is a fragile, chronically ill-appearing, elderly woman who is nonverbal, noncommunica tive. The patient is lying comfortably in bed. HEENT: Head atraumatic, normocephalic. Sclerae anicteric. Buccal mucosa dry. NECK: Supple, trachea midline. CHEST: Rise symmetrical. Breath sounds diminished to bases. HEART: S1, S2. ABDOMEN: Soft, bowel tones present. EXTREMITIES: No cyanosis. ASSESSMENT: 1. Sepsis with persistent leukocytosis and fevers. So far, blood cultures have been negative. 2. Urinary tract infection. 3. Probable aspiration pneumonia. 4. Pulmonary edema. 5. Dysphagia. 6. Alzheimer dementia. PLAN: The patient remains clinically unchanged. She was pancultured this morning. She has no diar lesvia as per discussion with nursing staff. We will continue her on current regimen and await for re peat cultures. Dictated By: EPHRAIM RYAN CLERK SECRETARY for NAT SEARS/WHITNEY Conf#: [id number] DID#: [id number]
[2016-06-18] MEDS: VANCOMYCIN 750 MG in SOD CHLORIDE 0.9% 150 ML IVPB SCH (18:40)
[2016-06-18 20:36] VITALS: BP 118/55; RESP 18
[2016-06-18] MEDS: INSULIN GLARGINE [LANtus] 3 ML PEN SC SCH ×2 (21:00→22:41)
[2016-06-18] MEDS: ATORVASTATIN 20 MG TAB GTB SCH (21:06)
[2016-06-19] MEDS: Insulin NOVOLOG SS MILD Algorithm (NPO/TPN/ENTERAL FEEDS) SC SCH ×4 (00:45→18:00)
[2016-06-19] MEDS: ALBUTEROL/IPRATROPIUM (NEB) 3 ML AMP INH SCH ×4 (01:26→20:32)
[2016-06-19] MEDS: SOD CHLORIDE 0.45% 1,000 ML IV SCH ×3 (03:20→16:40)
--- NOTE | 2016-06-19 06:51 | RADRPT ---
PROCEDURE: Retroperitoneal US. CLINICAL INDICATION: Evaluate for hydronephrosis TECHNIQUE: Multiple sonographic images of the retroperitoneum were obtained. The images were revi ewed on a PACS workstation. COMPARISON: No prior studies are available for comparison. FINDINGS: The right kidney measures 11.7 x 5.1 x 7.3 cm. The left kidney measures 10.1 x 4.6 cm. The renal parenchymal echotexture is normal. There is no hydronephrosis. There is no focal renal mass or calcification seen. There is a 1.4 cm simple cyst in the lower pole of the left kidney. The bladder is collapsed around a Gunter catheter balloon which limits evaluation. IMPRESSION: Bilateral kidneys are unremarkable without evidence of hydronephrosis. The bladder is collapsed around a Gunter catheter balloon which limits evaluation. RPTAT: EE Physician Consuelo Date Time Electronically viewed and signed by Physician Consuelo on 06/18/2016 14:54 /
[2016-06-19 07:17] LABS: POTASSIUM 4.4 mmol/L (3.5-5.1)
[2016-06-19 07:19] LABS: CREATININE 0.69 mg/dl (0.44-1.00)
[2016-06-19 07:20] LABS: CALCIUM 8.5 mg/dl (8.4-10.2)
[2016-06-19 07:43] VITALS: BP 121/56; RESP 20
[2016-06-19] MEDS: RISPERIDONE 1 MG TAB GTB SCH (09:39)
[2016-06-19] MEDS: DOCUSATE SODIUM 10 MG/ML (10ML CUP) GTB SCH ×2 (09:39→21:00)
[2016-06-19] MEDS: FAMOTIDINE 20 MG TAB GTB SCH (09:39)
[2016-06-19] MEDS: ASCORBIC ACID 500 MG TAB GTB SCH (09:39)
[2016-06-19] MEDS: SERTRALINE 100 MG TAB GTB SCH (09:39)
[2016-06-19] MEDS: CEFEPIME 2GM/50 ML (PMX) 50 ML IVPB SCH (09:40)
[2016-06-19] MEDS: HEPARIN 5,000 UNIT/0.5 ML SYG SC SCH ×2 (09:43→22:11)
[2016-06-19 11:35] LABS: HEMATOCRIT 30.3 % (37.0-47.0); MEAN CORPUSCULAR VOLUME 98.1 fl (82.0-101.0); RED BLOOD COUNT 3.09 10^6/ul (4.20-5.40); WHITE BLOOD COUNT 18.8 10^3/ul (4.8-10.8)
[2016-06-19 11:36] LABS: BASOPHIL # 0.1 10^3/ul (0.0-0.1); BASOPHILS % 0.4 % (0.0-2.0); EOSINOPHILS # 0.6 10^3/ul (0.0-0.5); EOSINOPHILS % 3.3 % (0.0-7.0); LYMPHOCYTES # 2.4 10^3/ul (0.8-2.9); LYMPHOCYTES % 12.9 % (15.0-51.0); MEAN CORPUSCULAR HEMOGLOBIN 29.1 pg (29.0-33.0); MEAN CORPUSCULAR HGB CONC 29.7 g/dl (32.0-37.0); MEAN PLATELET VOLUME 11.4 fl (7.4-10.4); MONOCYTE # 1.1 10^3/ul (0.3-0.9); MONOCYTES % 6.1 % (0.0-11.0); NEUTROPHIL # 14.2 10^3/ul (1.6-7.5); NEUTROPHILS % 75.5 % (39.0-77.0); PLATELET COUNT 344 10^3/UL (140-440); RED CELL DISTRIBUTION WIDTH 16.5 % (11.5-14.5)
--- NOTE | 2016-06-19 11:44 | PN ---
Date/Time of Note Date/Time of Note DATE: 06/19/16 TIME: 11:41 Assessment/Plan VTE Prophylaxis VTE Prophylaxis Intervention: other Lines/Catheters IV [facility]ter Type (from [facility]): Peripheral IV Urinary Cath still in place: Yes Reason Cath still needed: pres ulcer contaminated by urine Assessment/Plan Problems: (1) Urinary tract infection Status: Acute Comment: She is on appropriate antibiotics for this. Should be able to transition over to medicines via the G-tube in the near future. Please note she has also positive C. 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 Lopez's recommendation for a family conference for future plans. While she is doing well enough to expect that she will survive this hospitalization should have repetitive hospitalizations due to infections from a chronic indwelling Gunter catheter; the PEG tube; etc. I have the suspicion the family is trying to feed her despite her dysphagia and the placement of the PEG tube when there is not medical staff immediately insight C. difficile positive; I will start her on metronidazole Anemia; we will recheck her iron levels. We will have IV access we may go ahead and give her dosage referral set Subjective 24 Hr Interval Summary Subjective hx not possible: pt non-verbal (Chronic Parkinson's disease and also organic brain syndrome noncommunicative.) Exam/Review of Systems Vital Signs Vitals Vital Signs Date Time Temp Pulse Resp B/P Pulse Ox O2 Delivery O2 Flow Rate FiO2 06/19/16 08:13 73 22 96 Nasal Cannula 1.0 06/19/16 07:43 99.0 121/56 06/17/16 01:50 28 Intake and Output 06/18/16 06/18/16 06/19/16 15:00 23:00 07:00 Intake Total 50 ml 2250 ml Output Total 1000 ml 700 ml Balance -950 ml 1550 ml Exam Elderly woman lying in bed with significant bilateral upper extremity parkinsonian tremor nonresponsive to questioning by myself or the family. Please note she has a PEG tube for nutritional access which has been present for some time. I spoke to her son by telephone who asked when she would be able to start swallowing again I informed him that that was not going to happen Constitutional: alert Neck: non-tender, supple Respiratory: clear to auscultation, normal air movement Cardiovascular: nl pulses, regular rate and rhythm Gastrointestinal: nl liver, spleen, non-tender, soft Neurological: other (Bilateral upper extremity tremor) Results Result Diagram: 06/19/16 0507 06/19/16 0507 Results 24 hrs Laboratory Tests Test 06/18/16 12:16 06/18/16 17:10 06/18/16 17:54 06/18/16 20:53 Bedside Glucose 126 151 135 Vancomycin Level Trough 11.8 Test 06/18/16 22:39 06/19/16 00:36 06/19/16 05:07 06/19/16 06:22 Bedside Glucose 150 151 140 Anion Gap 14 Basophils # 0.1 Basophils % 0.4 Blood Urea Nitrogen 37 H Calcium Level 8.5 Carbon Dioxide Level 29 Chloride Level 109 Creatinine 0.69 Eosinophils # 0.6 H Eosinophils % 3.3 Glucose Level 132 Hematocrit 30.3 L Hemoglobin 9.0 L Lymphocytes # 2.4 Lymphocytes % 12.9 L Mean Corpuscular Hemoglobin 29.1 Mean Corpuscular Hemoglobin Concent 29.7 L Mean Corpuscular Volume 98.1 Mean Platelet Volume 11.4 #H Monocytes # 1.1 H Monocytes % 6.1 Neutrophils # 14.2 H Neutrophils % 75.5 Nucleated Red Blood Cells # 0.0 Nucleated Red Blood Cells % 0.0 Platelet Count 344 Potassium Level 4.4 Red Blood Count 3.09 L Red Cell Distribution Width 16.5 H Sodium Level 148 H White Blood Count 18.8 H Medications Medications Current Medications Heparin Sodium (Porcine) (Heparin (5000 Units/0.5 ml)) 5,000 unit BID SC Last administered on 06/19/16 09:43; Admin Dose 5,000 UNIT; Start 06/16/16 at 09:00 Insulin Glargine (Lantus) 10 unit QHS SC Last administered on 06/18/16 22:41; Admin Dose 10 UNIT; Start 06/16/16 at 21:00 Miscellaneous Information 1 ea NOTE XX ; Start 06/16/16 at 00:00 Glucose (Glutose) 15 gm Q15M PRN PO DECREASED GLUCOSE; Start 06/16/16 at 00:00 Glucose (Glutose) 22.5 gm Q15M PRN PO DECREASED GLUCOSE; Start 06/16/16 at 00:00 Dextrose (D50w Syringe) 25 ml Q15M PRN IV DECREASED GLUCOSE; Start 06/16/16 at 00:00 Dextrose (D50w Syringe) 50 ml Q15M PRN IV DECREASED GLUCOSE; Start 06/16/16 at 00:00 Glucagon (Glucagen) 1 mg Q15M PRN IM DECREASED GLUCOSE; Start 06/16/16 at 00:00 Glucose (Glutose) 15 gm Q15M PRN BUCCAL DECREASED GLUCOSE; Start 06/16/16 at 00: 00 Miscellaneous Information (Flu Vaccine Previously Dispensed) FLU VACCINE PREVIOU... NOTE PRN XX NOTE; Start 06/16/16 at 04:30 Ascorbic Acid (Vitamin C) 500 mg DAILY GTB Last administered on 06/19/16 09:39 ; Admin Dose 500 MG; Start 06/16/16 at 09:00 Atorvastatin Calcium (Lipitor) 20 mg QHS GTB Last administered on 06/18/16 21: 06; Admin Dose 20 MG; Start 06/16/16 at 21:00 Docusate Sodium (Colace Liquid Cup) 100 mg BID GTB Last administered on 09:39; Admin Dose 100 MG; Start 06/16/16 at 09:00 Famotidine (Pepcid) 20 mg DAILY GTB Last administered on 06/19/16 09:39; Admin Dose 20 MG; Start 06/16/16 at 09:00 Risperidone (Risperdal) 1 mg DAILY GTB Last administered on 06/19/16 09:39; Admin Dose 1 MG; Start 06/16/16 at 09:00 Sertraline HCl 100 mg 100 mg DAILY GTB Last administered on 06/19/16 09:39; Admin Dose 100 MG; Start 06/16/16 at 09:00 Cefepime HCl (Maxipime 2gm/50 ml (Pmx)) 50 ml @ 100 mls/hr Q12 IVPB Last administered on 06/19/16 09:40; Admin Dose 100 MLS/HR; Start 06/16/16 at 12:00 Al Hydrox/Mg Hydrox/Simethicone (Mag-Al Plus) 30 ml Q6H PRN PO GAS/BLOATING; Start 06/16/16 at 12:30 Acetaminophen 650 mg 650 mg Q4H PRN GTB PAIN AND OR ELEVATED TEMP; Start at 10:00 Sodium Chloride 1,000 ml @ 75 mls/hr [id number] IV Last administered on 06/19/16 06:25; Admin Dose 75 MLS/HR; Start 06/18/16 at 14:00 Vancomycin HCl (Vancocin) 250 ml @ 125 mls/hr Q24H IVPB ; Start 06/19/16 at 18: 00 Insulin Aspart (Novolog Insulin Pen) (Adult SC Insulin - Mild Algorithm)... Q6 SC Last administered on 06/19/16 00:45; Admin Dose 1 UNIT; Start 06/19/16 at 00: 00 Metronidazole (Flagyl) 500 mg Q8 GTB ; Start 06/19/16 at 14:00; Stop 06/29/16 at 13:59 GUSTABO MUNOZ MD Jun 19, 2016 11:44
[2016-06-19 12:23] LABS: IRON 35 ug/dl (35-150)
[2016-06-19 12:32] LABS: TOTAL IRON BINDING CAPACITY 161 ug/dl (241-421)
--- NOTE | 2016-06-19 13:22 | CONS ---
Date/Time of Note Date/Time of Note DATE: 06/19/16 TIME: 13:19 Assessment/Plan Assessment/Plan Chief Complaint/Hosp Course SUBJECTIVE: No changes. Lying comfortably in bed, o fevers MICROBIOLOGY: Urine culture growing E. coli ANTIMICROBIALS: The patient is on: 1. IV vancomycin. 2. Cefepime. DIAGNOSTICS: Chest x-ray this morning revealed mild pulmonary edema. INDWELLINGS: Gunter catheter. PHYSICAL EXAMINATION: GENERAL: This is a fragile, chronically ill-appearing, elderly woman who is nonverbal, noncommunicative. The patient is lying comfortably in bed. HEENT: Head atraumatic, normocephalic. Sclerae anicteric. Buccal mucosa dry. NECK: Supple, trachea midline. CHEST: Rise symmetrical. Breath sounds diminished to bases. HEART: S1, S2. ABDOMEN: Soft, bowel tones present. EXTREMITIES: No cyanosis. ASSESSMENT: 1. Sepsis with persistent leukocytosis and fevers. So far, blood cultures have been negative. 2. Urinary tract infection. 3. Probable aspiration pneumonia. 4. Pulmonary edema. 5. Dysphagia. 6. Alzheimer dementia. 7. C dif colitis PLAN: The patient remains clinically unchanged. Stool came + for C dif, will start PO Vanco, Rocephin and Flagyl, dc other abx DW staff Problems: Consultation Date/Type/Reason Admit Date/Time Jun 15, 2016 at 22:37 Initial Consult Date Type of Consultation: id Exam/Review of Systems Vital Signs Vitals Vital Signs Date Time Temp Pulse Resp B/P Pulse Ox O2 Delivery O2 Flow Rate FiO2 06/19/16 08:30 Nasal Cannula 1.0 06/19/16 08:13 73 22 96 06/19/16 07:43 99.0 121/56 06/17/16 01:50 28 Intake and Output 06/18/16 06/18/16 06/19/16 15:00 23:00 07:00 Intake Total 50 ml 2250 ml Output Total 1000 ml 700 ml Balance -950 ml 1550 ml Results Result Diagram: 06/19/16 0507 06/19/16 0507 Results 24 hrs Laboratory Tests Test 06/18/16 17:10 06/18/16 17:54 06/18/16 20:53 06/18/16 22:39 Vancomycin Level Trough 11.8 Bedside Glucose 151 135 150 Test 06/19/16 00:36 06/19/16 05:07 06/19/16 06:22 06/19/16 12:35 Bedside Glucose 151 140 107 Anion Gap 14 Basophils # 0.1 Basophils % 0.4 Blood Urea Nitrogen 37 H Calcium Level 8.5 Carbon Dioxide Level 29 Chloride Level 109 Creatinine 0.69 Eosinophils # 0.6 H Eosinophils % 3.3 Ferritin 663.0 H Glucose Level 132 Hematocrit 30.3 L Hemoglobin 9.0 L Iron Level 35 Lymphocytes # 2.4 Lymphocytes % 12.9 L Mean Corpuscular Hemoglobin 29.1 Mean Corpuscular Hemoglobin Concent 29.7 L Mean Corpuscular Volume 98.1 Mean Platelet Volume 11.4 #H Monocytes # 1.1 H Monocytes % 6.1 Neutrophils # 14.2 H Neutrophils % 75.5 Nucleated Red Blood Cells # 0.0 Nucleated Red Blood Cells % 0.0 Percent Iron Saturation 22 Platelet Count 344 Potassium Level 4.4 Red Blood Count 3.09 L Red Cell Distribution Width 16.5 H Sodium Level 148 H Total Iron Binding Capacity 161 L White Blood Count 18.8 H Medications Medications Current Medications Heparin Sodium (Porcine) (Heparin (5000 Units/0.5 ml)) 5,000 unit BID SC Last administered on 06/19/16 09:43; Admin Dose 5,000 UNIT; Start 06/16/16 at 09:00 Insulin Glargine (Lantus) 10 unit QHS SC Last administered on 06/18/16 22:41; Admin Dose 10 UNIT; Start 06/16/16 at 21:00 Miscellaneous Information 1 ea NOTE XX ; Start 06/16/16 at 00:00 Glucose (Glutose) 15 gm Q15M PRN PO DECREASED GLUCOSE; Start 06/16/16 at 00:00 Glucose (Glutose) 22.5 gm Q15M PRN PO DECREASED GLUCOSE; Start 06/16/16 at 00:00 Dextrose (D50w Syringe) 25 ml Q15M PRN IV DECREASED GLUCOSE; Start 06/16/16 at 00:00 Dextrose (D50w Syringe) 50 ml Q15M PRN IV DECREASED GLUCOSE; Start 06/16/16 at 00:00 Glucagon (Glucagen) 1 mg Q15M PRN IM DECREASED GLUCOSE; Start 06/16/16 at 00:00 Glucose (Glutose) 15 gm Q15M PRN BUCCAL DECREASED GLUCOSE; Start 06/16/16 at 00: 00 Miscellaneous Information (Flu Vaccine Previously Dispensed) FLU VACCINE PREVIOU... NOTE PRN XX NOTE; Start 06/16/16 at 04:30 Ascorbic Acid (Vitamin C) 500 mg DAILY GTB Last administered on 06/19/16 09:39 ; Admin Dose 500 MG; Start 06/16/16 at 09:00 Atorvastatin Calcium (Lipitor) 20 mg QHS GTB Last administered on 06/18/16 21: 06; Admin Dose 20 MG; Start 06/16/16 at 21:00 Docusate Sodium (Colace Liquid Cup) 100 mg BID GTB Last administered on 09:39; Admin Dose 100 MG; Start 06/16/16 at 09:00 Famotidine (Pepcid) 20 mg DAILY GTB Last administered on 06/19/16 09:39; Admin Dose 20 MG; Start 06/16/16 at 09:00 Risperidone (Risperdal) 1 mg DAILY GTB Last administered on 06/19/16 09:39; Admin Dose 1 MG; Start 06/16/16 at 09:00 Sertraline HCl (Zoloft) 100 mg DAILY GTB Last administered on 06/19/16 09:39; Admin Dose 100 MG; Start 06/16/16 at 09:00 Al Hydrox/Mg Hydrox/Simethicone (Mag-Al Plus) 30 ml Q6H PRN PO GAS/BLOATING; Start 06/16/16 at 12:30 Acetaminophen 650 mg 650 mg Q4H PRN GTB PAIN AND OR ELEVATED TEMP; Start at 10:00 Sodium Chloride (1/2 NS) 1,000 ml @ 75 mls/hr [id number] IV Last administered on 06/19/16 06:25; Admin Dose 75 MLS/HR; Start 06/18/16 at 14:00 Insulin Aspart (Novolog Insulin Pen) (Adult SC Insulin - Mild Algorithm)... Q6 SC Last administered on 06/19/16 00:45; Admin Dose 1 UNIT; Start 06/19/16 at 00: 00 Metronidazole 500 mg 500 mg Q8 GTB ; Start 06/19/16 at 14:00; Stop 06/29/16 at 13 :59 Ceftriaxone Sodium (Rocephin) 50 ml @ 100 mls/hr Q24H IVPB ; Start 06/19/16 at 12:30 Vancomycin HCl (Vancomycin Oral Syringe) 250 mg Q6 PO ; Start 06/19/16 at 18:00 Metronidazole (Flagyl) 500 mg Q8 NGT ; Start 06/19/16 at 14:00 EPHRAIM RYAN NP Jun 19, 2016 13:22
[2016-06-19] MEDS: CEFTRIAXONE 1 GM/50 ML (PMX) 50 ML IVPB SCH (13:50)
[2016-06-19] MEDS: metroNIDAZOLE 500 MG TAB GTB SCH ×2 (13:50→22:08)
[2016-06-19] MEDS ORDERED: metroNIDAZOLE 500 MG TAB NGT SCH (14:00)
[2016-06-19] MEDS ORDERED: VANCOMYCIN 1 GM in NS 250 ML IVPB SCH (18:00)
[2016-06-19] MEDS: VANCOMYCIN HCL 250 MG/5ML POSYG PO SCH (18:27)
[2016-06-19 19:00] VITALS: BP 124/58; RESP 18
[2016-06-19] MEDS: ATORVASTATIN 20 MG TAB GTB SCH (22:08)
[2016-06-19] MEDS: INSULIN GLARGINE [LANtus] 3 ML PEN SC SCH (22:10)
[2016-06-20] MEDS: Insulin NOVOLOG SS MILD Algorithm (NPO/TPN/ENTERAL FEEDS) SC SCH ×4 (00:45→18:00)
[2016-06-20] MEDS: SOD CHLORIDE 0.45% 1,000 ML IV SCH ×3 (00:53→13:15)
[2016-06-20] MEDS: VANCOMYCIN HCL 250 MG/5ML POSYG PO SCH ×4 (00:53→18:00)
[2016-06-20] MEDS: ALBUTEROL/IPRATROPIUM (NEB) 3 ML AMP INH SCH ×4 (02:17→21:07)
[2016-06-20] MEDS: metroNIDAZOLE 500 MG TAB GTB SCH ×3 (06:42→22:14)
[2016-06-20 06:49] LABS: HEMATOCRIT 27.8 % (37.0-47.0); HEMOGLOBIN 9.3 g/dl (12.0-16.0); MEAN CORPUSCULAR HEMOGLOBIN 29.5 pg (29.0-33.0); MEAN CORPUSCULAR HGB CONC 33.3 g/dl (32.0-37.0); MEAN CORPUSCULAR VOLUME 88.6 fl (82.0-101.0); MEAN PLATELET VOLUME 9.3 fl (7.4-10.4); PLATELET COUNT 339 10^3/UL (140-440); RED BLOOD COUNT 3.14 10^6/ul (4.20-5.40); RED CELL DISTRIBUTION WIDTH 17.1 % (11.5-14.5); UNCORRECTED WBC 21.9 10^3/ul (4.8-10.8); WHITE BLOOD COUNT 21.9 10^3/ul (4.8-10.8)
[2016-06-20 06:54] LABS: CONDITION 1; LH ANALYZER COMMENTS 1; SUSPECT 1
[2016-06-20 07:43] LABS: POTASSIUM 4.4 mmol/L (3.5-5.1)
[2016-06-20 07:45] LABS: CREATININE 0.69 mg/dl (0.44-1.00)
[2016-06-20 07:46] LABS: CALCIUM 8.4 mg/dl (8.4-10.2)
[2016-06-20 08:19] VITALS: BP 178/97; RESP 20
[2016-06-20] MEDS: FAMOTIDINE 20 MG TAB GTB SCH (09:26)
[2016-06-20] MEDS: RISPERIDONE 1 MG TAB GTB SCH (09:27)
[2016-06-20] MEDS: ASCORBIC ACID 500 MG TAB GTB SCH (09:27)
[2016-06-20] MEDS: SERTRALINE 100 MG TAB GTB SCH (09:27)
[2016-06-20] MEDS: DOCUSATE SODIUM 10 MG/ML (10ML CUP) GTB SCH ×2 (09:28→22:13)
[2016-06-20 09:29] VITALS: BP 144/95; PULSE 69
[2016-06-20] MEDS: HEPARIN 5,000 UNIT/0.5 ML SYG SC SCH ×2 (09:47→22:16)
[2016-06-20 10:14] LABS: BASOPHIL # 0.2 10^3/ul (0.0-0.1); EOSINOPHILS # 0.2 10^3/ul (0.0-0.5); LYMPHOCYTES # 1.8 10^3/ul (0.8-2.9); MONOCYTE # 1.1 10^3/ul (0.3-0.9)
--- NOTE | 2016-06-20 11:06 | PN ---
Date/Time of Note Date/Time of Note DATE: 06/20/16 TIME: 11:02 Assessment/Plan VTE Prophylaxis VTE Prophylaxis Intervention: LMWH Lines/Catheters IV Catheter Type (from [facility]): Peripheral IV Urinary Cath still in place: Yes Reason Cath still needed: pres ulcer contaminated by urine Assessment/Plan Problems: (1) MRSA (methicillin resistant Staphylococcus aureus) colonization Status: Acute Comment: Noted. Will continue routine treatments. She is not having infection from MRSA fortunately (2) Anemia Status: Acute Comment: Normal iron studies. This will be continued to be observed Qualifiers: Other causes of anemia: other cause, not classified (3) Urinary tract infection Status: Acute Comment: On antibiotics and doing well; should be able to be discharged in the morning Qualifiers: Urinary tract infection type: site unspecified Hematuria presence: without hematuria Qualified Code: N39.0 - Urinary tract infection without hematuria, site unspecified (4) Dementia Status: Acute Comment: This is an issue in the family conference will be necessary for long- term planning. Qualifiers: Dementia type: unspecified type Dementia behavioral disturbance: without behavioral disturbance Qualified Code: F03.90 - Dementia without behavioral disturbance, unspecified dementia type (5) Parkinsons disease Status: Acute Comment: Stable (6) C. difficile diarrhea Status: Acute Comment: Noted and on antibiotics. Subjective 24 Hr Interval Summary Free Text/Dictation Patient much more verbal today. Constitutional: no complaints (Denies fever chills or sweats) Respiratory: no complaints Cardiovascular: no complaints Gastrointestinal: no complaints Genitourinary: no complaints Exam/Review of Systems Vital Signs Vitals Vital Signs Date Time Temp Pulse Resp B/P Pulse Ox O2 Delivery O2 Flow Rate FiO2 06/20/16 09:29 98.2 69 144/95 97 Nasal Cannula 1.0 06/20/16 08:34 20 06/17/16 01:50 28 Intake and Output 06/19/16 06/19/16 06/20/16 15:00 23:00 07:00 Intake Total 50 ml 1120 ml 2140 ml Output Total 1100 ml 1000 ml Balance 50 ml 20 ml 1140 ml Exam Constitutional: alert, oriented Neck: non-tender, supple Respiratory: clear to auscultation, normal air movement Cardiovascular: nl pulses, regular rate and rhythm Gastrointestinal: nl liver, spleen, non-tender, soft Results Result Diagram: 06/20/16 0510 06/20/16 0510 Results 24 hrs Laboratory Tests Test 06/19/16 12:35 06/19/16 17:19 06/19/16 22:07 06/20/16 00:41 Bedside Glucose 107 128 128 141 Test 06/20/16 05:10 06/20/16 06:27 Anion Gap 15 Band Neutrophils % 3.0 Basophils # 0.2 H Basophils % 1.0 Blood Morphology Comment Blood Urea Nitrogen 33 H Calcium Level 8.4 Carbon Dioxide Level 28 Chloride Level 103 Creatinine 0.69 Differential Comment MANUAL DIFF Eosinophils # 0.2 Eosinophils % 1.0 Glucose Level 125 Hematocrit 27.8 L Hemoglobin 9.3 L Lymphocytes # 1.8 Lymphocytes % 8.0 L Mean Corpuscular Hemoglobin 29.5 Mean Corpuscular Hemoglobin Concent 33.3 Mean Corpuscular Volume 88.6 Mean Platelet Volume 9.3 Monocytes # 1.1 H Monocytes % 5.0 Neutrophils # 18.0 H Neutrophils % 82.0 H Nucleated Red Blood Cells # Nucleated Red Blood Cells % 2.0 H Platelet Count 339 Potassium Level 4.4 Red Blood Count 3.14 L Red Cell Distribution Width 17.1 H Sodium Level 142 White Blood Count 21.9 H Bedside Glucose 155 Medications Medications Current Medications Heparin Sodium (Porcine) (Heparin (5000 Units/0.5 ml)) 5,000 unit BID SC Last administered on 06/20/16 09:47; Admin Dose 5,000 UNIT; Start 06/16/16 at 09:00 Insulin Glargine (Lantus) 10 unit QHS SC Last administered on 06/19/16 22:10; Admin Dose 10 UNIT; Start 06/16/16 at 21:00 Miscellaneous Information 1 ea NOTE XX ; Start 06/16/16 at 00:00 Glucose (Glutose) 15 gm Q15M PRN PO DECREASED GLUCOSE; Start 06/16/16 at 00:00 Glucose (Glutose) 22.5 gm Q15M PRN PO DECREASED GLUCOSE; Start 06/16/16 at 00:00 Dextrose (D50w Syringe) 25 ml Q15M PRN IV DECREASED GLUCOSE; Start 06/16/16 at 00:00 Dextrose (D50w Syringe) 50 ml Q15M PRN IV DECREASED GLUCOSE; Start 06/16/16 at 00:00 Glucagon (Glucagen) 1 mg Q15M PRN IM DECREASED GLUCOSE; Start 06/16/16 at 00:00 Glucose (Glutose) 15 gm Q15M PRN BUCCAL DECREASED GLUCOSE; Start 06/16/16 at 00: 00 Miscellaneous Information (Flu Vaccine Previously Dispensed) FLU VACCINE PREVIOU... NOTE PRN XX NOTE; Start 06/16/16 at 04:30 Ascorbic Acid (Vitamin C) 500 mg DAILY GTB Last administered on 06/20/16 09:27 ; Admin Dose 500 MG; Start 06/16/16 at 09:00 Atorvastatin Calcium (Lipitor) 20 mg QHS GTB Last administered on 06/19/16 22: 08; Admin Dose 20 MG; Start 06/16/16 at 21:00 Docusate Sodium (Colace Liquid Cup) 100 mg BID GTB Last administered on 09:28; Admin Dose 100 MG; Start 06/16/16 at 09:00 Famotidine (Pepcid) 20 mg DAILY GTB Last administered on 06/20/16 09:26; Admin Dose 20 MG; Start 06/16/16 at 09:00 Risperidone (Risperdal) 1 mg DAILY GTB Last administered on 06/20/16 09:27; Admin Dose 1 MG; Start 06/16/16 at 09:00 Sertraline HCl (Zoloft) 100 mg DAILY GTB Last administered on 06/20/16 09:27; Admin Dose 100 MG; Start 06/16/16 at 09:00 Al Hydrox/Mg Hydrox/Simethicone (Mag-Al Plus) 30 ml Q6H PRN PO GAS/BLOATING; Start 06/16/16 at 12:30 Acetaminophen 650 mg 650 mg Q4H PRN GTB PAIN AND OR ELEVATED TEMP; Start at 10:00 Sodium Chloride (1/2 NS) 1,000 ml @ 75 mls/hr [id number] IV Last administered on 06/20/16 00:53; Admin Dose 75 MLS/HR; Start 06/18/16 at 14:00 Insulin Aspart (Novolog Insulin Pen) (Adult SC Insulin - Mild Algorithm)... Q6 SC Last administered on 06/20/16 06:44; Admin Dose 1 UNIT; Start 06/19/16 at 00: 00 Metronidazole 500 mg 500 mg Q8 GTB Last administered on 06/20/16 06:42; Admin Dose 500 MG; Start 06/19/16 at 14:00; Stop 06/29/16 at 13:59 Ceftriaxone Sodium (Rocephin) 50 ml @ 100 mls/hr Q24H IVPB Last administered on 06/19/16 13:50; Admin Dose 100 MLS/HR; Start 06/19/16 at 12:30 Vancomycin HCl (Vancomycin Oral Syringe) 250 mg Q6 PO Last administered on 06:42; Admin Dose 250 MG; Start 06/19/16 at 18:00 GUSTABO MUNOZ MD Jun 20, 2016 11:05
[2016-06-20] MEDS: CEFTRIAXONE 1 GM/50 ML (PMX) 50 ML IVPB SCH (13:06)
--- NOTE | 2016-06-20 18:25 | CONS ---
Date/Time of Note Date/Time of Note DATE: 06/20/16 TIME: 18:22 Assessment/Plan Assessment/Plan Chief Complaint/Hosp Course SUBJECTIVE: No acute changes. Pt is awake, responsive, lying comfortably in bed , no fevers MICROBIOLOGY: Urine culture growing E. coli, stool + C dif ANTIMICROBIALS: The patient is on: 1. PO vancomycin. 2. Rocephin. 3. Flagyl INDWELLINGS: Gunter catheter, PEG. PHYSICAL EXAMINATION: GENERAL: This is a fragile, chronically ill-appearing, elderly woman who is nonverbal, noncommunicative. The patient is lying comfortably in bed. HEENT: Head atraumatic, normocephalic. Sclerae anicteric. Buccal mucosa dry. NECK: Supple, trachea midline. CHEST: Rise symmetrical. Breath sounds diminished to bases. HEART: S1, S2. ABDOMEN: Soft, bowel tones present. EXTREMITIES: No cyanosis. ASSESSMENT: 1. Sepsis . 2. Urinary tract infection. 3. Probable aspiration pneumonia. 4. Pulmonary edema. 5. Dysphagia. 6. Alzheimer dementia. 7. C dif colitis PLAN: Clinically improving. Continue abx DW staff Problems: Consultation Date/Type/Reason Admit Date/Time Jun 15, 2016 at 22:37 Type of Consultation: id Exam/Review of Systems Vital Signs Vitals Vital Signs Date Time Temp Pulse Resp B/P Pulse Ox O2 Delivery O2 Flow Rate FiO2 06/20/16 14:46 97 1.0 06/20/16 14:46 65 21 Nasal Cannula 06/20/16 09:29 98.2 144/95 06/17/16 01:50 28 Intake and Output 06/19/16 06/19/16 06/20/16 15:00 23:00 07:00 Intake Total 50 ml 1120 ml 2140 ml Output Total 1100 ml 1000 ml Balance 50 ml 20 ml 1140 ml Results Result Diagram: 06/20/16 0510 06/20/16 0510 Results 24 hrs Laboratory Tests Test 06/19/16 22:07 06/20/16 00:41 06/20/16 05:10 06/20/16 06:27 Bedside Glucose 128 141 155 Anion Gap 15 Band Neutrophils % 3.0 Basophils # 0.2 H Basophils % 1.0 Blood Morphology Comment Blood Urea Nitrogen 33 H Calcium Level 8.4 Carbon Dioxide Level 28 Chloride Level 103 Creatinine 0.69 Differential Comment MANUAL DIFF Eosinophils # 0.2 Eosinophils % 1.0 Glucose Level 125 Hematocrit 27.8 L Hemoglobin 9.3 L Lymphocytes # 1.8 Lymphocytes % 8.0 L Mean Corpuscular Hemoglobin 29.5 Mean Corpuscular Hemoglobin Concent 33.3 Mean Corpuscular Volume 88.6 Mean Platelet Volume 9.3 Monocytes # 1.1 H Monocytes % 5.0 Neutrophils # 18.0 H Neutrophils % 82.0 H Nucleated Red Blood Cells # Nucleated Red Blood Cells % 2.0 H Platelet Count 339 Potassium Level 4.4 Red Blood Count 3.14 L Red Cell Distribution Width 17.1 H Sodium Level 142 White Blood Count 21.9 H Test 06/20/16 12:03 Bedside Glucose 100 Medications Medications Current Medications Heparin Sodium (Porcine) (Heparin (5000 Units/0.5 ml)) 5,000 unit BID SC Last administered on 06/20/16 09:47; Admin Dose 5,000 UNIT; Start 06/16/16 at 09:00 Insulin Glargine (Lantus) 10 unit QHS SC Last administered on 06/19/16 22:10; Admin Dose 10 UNIT; Start 06/16/16 at 21:00 Miscellaneous Information 1 ea NOTE XX ; Start 06/16/16 at 00:00 Glucose (Glutose) 15 gm Q15M PRN PO DECREASED GLUCOSE; Start 06/16/16 at 00:00 Glucose (Glutose) 22.5 gm Q15M PRN PO DECREASED GLUCOSE; Start 06/16/16 at 00:00 Dextrose (D50w Syringe) 25 ml Q15M PRN IV DECREASED GLUCOSE; Start 06/16/16 at 00:00 Dextrose (D50w Syringe) 50 ml Q15M PRN IV DECREASED GLUCOSE; Start 06/16/16 at 00:00 Glucagon (Glucagen) 1 mg Q15M PRN IM DECREASED GLUCOSE; Start 06/16/16 at 00:00 Glucose (Glutose) 15 gm Q15M PRN BUCCAL DECREASED GLUCOSE; Start 06/16/16 at 00: 00 Miscellaneous Information (Flu Vaccine Previously Dispensed) FLU VACCINE PREVIOU... NOTE PRN XX NOTE; Start 06/16/16 at 04:30 Ascorbic Acid (Vitamin C) 500 mg DAILY GTB Last administered on 06/20/16 09:27 ; Admin Dose 500 MG; Start 06/16/16 at 09:00 Atorvastatin Calcium (Lipitor) 20 mg QHS GTB Last administered on 06/19/16 22: 08; Admin Dose 20 MG; Start 06/16/16 at 21:00 Docusate Sodium (Colace Liquid Cup) 100 mg BID GTB Last administered on 09:28; Admin Dose 100 MG; Start 06/16/16 at 09:00 Famotidine (Pepcid) 20 mg DAILY GTB Last administered on 06/20/16 09:26; Admin Dose 20 MG; Start 06/16/16 at 09:00 Risperidone (Risperdal) 1 mg DAILY GTB Last administered on 06/20/16 09:27; Admin Dose 1 MG; Start 06/16/16 at 09:00 Sertraline HCl (Zoloft) 100 mg DAILY GTB Last administered on 06/20/16 09:27; Admin Dose 100 MG; Start 06/16/16 at 09:00 Al Hydrox/Mg Hydrox/Simethicone (Mag-Al Plus) 30 ml Q6H PRN PO GAS/BLOATING; Start 06/16/16 at 12:30 Acetaminophen 650 mg 650 mg Q4H PRN GTB PAIN AND OR ELEVATED TEMP; Start at 10:00 Sodium Chloride (1/2 NS) 1,000 ml @ 75 mls/hr [id number] IV Last administered on 06/20/16 13:15; Admin Dose 75 MLS/HR; Start 06/18/16 at 14:00 Insulin Aspart (Novolog Insulin Pen) (Adult SC Insulin - Mild Algorithm)... Q6 SC Last administered on 06/20/16 06:44; Admin Dose 1 UNIT; Start 06/19/16 at 00: 00 Metronidazole 500 mg 500 mg Q8 GTB Last administered on 06/20/16 13:06; Admin Dose 500 MG; Start 06/19/16 at 14:00; Stop 06/29/16 at 13:59 Ceftriaxone Sodium (Rocephin) 50 ml @ 100 mls/hr Q24H IVPB Last administered on 06/20/16 13:06; Admin Dose 100 MLS/HR; Start 06/19/16 at 12:30 Vancomycin HCl (Vancomycin Oral Syringe) 250 mg Q6 PO Last administered on t 13:06; Admin Dose 250 MG; Start 06/19/16 at 18:00 EPHRAIM RYAN NP Jun 20, 2016 18:24
[2016-06-20 19:54] VITALS: BP 100/51; RESP 20
[2016-06-20] MEDS: ATORVASTATIN 20 MG TAB GTB SCH (22:14)
[2016-06-20] MEDS: INSULIN GLARGINE [LANtus] 3 ML PEN SC SCH (22:19)
[2016-06-21] MEDS: VANCOMYCIN HCL 250 MG/5ML POSYG PO SCH ×4 (00:16→17:07)
[2016-06-21] MEDS: Insulin NOVOLOG SS MILD Algorithm (NPO/TPN/ENTERAL FEEDS) SC SCH ×5 (00:41→23:55)
[2016-06-21] MEDS: ALBUTEROL/IPRATROPIUM (NEB) 3 ML AMP INH SCH ×4 (02:45→19:30)
[2016-06-21] MEDS: SOD CHLORIDE 0.45% 1,000 ML IV SCH ×2 (03:32→17:10)
[2016-06-21] MEDS: metroNIDAZOLE 500 MG TAB GTB SCH ×3 (05:18→21:05)
[2016-06-21 06:16] LABS: BASOPHIL # 0.1 10^3/ul (0.0-0.1); BASOPHILS % 0.5 % (0.0-2.0); EOSINOPHILS # 0.4 10^3/ul (0.0-0.5); EOSINOPHILS % 1.9 % (0.0-7.0); HEMATOCRIT 25.3 % (37.0-47.0); HEMOGLOBIN 8.4 g/dl (12.0-16.0); LYMPHOCYTES # 1.9 10^3/ul (0.8-2.9); LYMPHOCYTES % 9.7 % (15.0-51.0); MEAN CORPUSCULAR HEMOGLOBIN 29.3 pg (29.0-33.0); MEAN CORPUSCULAR HGB CONC 33.3 g/dl (32.0-37.0); MEAN CORPUSCULAR VOLUME 88.2 fl (82.0-101.0); MEAN PLATELET VOLUME 9.4 fl (7.4-10.4); MONOCYTE # 0.6 10^3/ul (0.3-0.9); MONOCYTES % 3.1 % (0.0-11.0); NEUTROPHIL # 16.7 10^3/ul (1.6-7.5); NEUTROPHILS % 84.8 % (39.0-77.0); PLATELET COUNT 350 10^3/UL (140-440); RED BLOOD COUNT 2.86 10^6/ul (4.20-5.40); RED CELL DISTRIBUTION WIDTH 16.5 % (11.5-14.5); UNCORRECTED WBC 19.7 10^3/ul (4.8-10.8); WHITE BLOOD COUNT 19.7 10^3/ul (4.8-10.8)
[2016-06-21 06:21] LABS: CONDITION 1; LH ANALYZER COMMENTS 1; SUSPECT 1
[2016-06-21 06:37] LABS: POTASSIUM 4.3 mmol/L (3.5-5.1)
[2016-06-21 06:40] LABS: CREATININE 0.57 mg/dl (0.44-1.00)
[2016-06-21 06:41] LABS: CALCIUM 8.1 mg/dl (8.4-10.2)
[2016-06-21 07:55] VITALS: BP 162/66; RESP 20
[2016-06-21] MEDS: DOCUSATE SODIUM 10 MG/ML (10ML CUP) GTB SCH ×2 (09:00→20:41)
[2016-06-21] MEDS: HEPARIN 5,000 UNIT/0.5 ML SYG SC SCH ×2 (09:00→20:50)
[2016-06-21] MEDS: RISPERIDONE 1 MG TAB GTB SCH (09:24)
[2016-06-21] MEDS: ASCORBIC ACID 500 MG TAB GTB SCH (09:24)
[2016-06-21] MEDS: FAMOTIDINE 20 MG TAB GTB SCH (09:24)
[2016-06-21] MEDS: SERTRALINE 100 MG TAB GTB SCH (09:25)
[2016-06-21] MEDS: CEFTRIAXONE 1 GM/50 ML (PMX) 50 ML IVPB SCH (12:17)
--- NOTE | 2016-06-21 15:36 | PN ---
Date/Time of Note Date/Time of Note DATE: 06/21/16 TIME: 15:29 Assessment/Plan VTE Prophylaxis VTE Prophylaxis Intervention: heparin Lines/Catheters IV Catheter Type (from Nrs): Peripheral IV Urinary Cath still in place: Yes Reason Cath still needed: other (indicate) Assessment/Plan Assessment/Plan 1. Urinary tract infection, E. Coli, on rocephin 2. Sepsis, IVF and antibiotics 3. Diabetes mellitus, on insulins 3. Alzheimer dementia. She is on Sertraline and Risperidone. 4. High cholesterol. Continue statin. 5. Tremor, likely Parkinson's 6. Hypertension. hypotension now 7. Dysphagia, s/p PEG with tube feeding 8. C. Diff colitis, on oral vancomycin 9. Gastrointestinal prophylaxis. H2 shin. 10. Deep venous thrombosis prophylaxis. Heparin Subjective 24 Hr Interval Summary Free Text/Dictation no distress, afebrile Exam/Review of Systems Vital Signs Vitals Vital Signs Date Time Temp Pulse Resp B/P Pulse Ox O2 Delivery O2 Flow Rate FiO2 06/21/16 14:19 61 18 100 Nasal Cannula 2.0 06/21/16 07:55 98.4 162/66 Intake and Output 06/20/16 06/20/16 06/21/16 15:00 23:00 07:00 Intake Total 750 ml 1120 ml 1940 ml Output Total 1300 ml 2450 ml Balance 750 ml -180 ml -510 ml Exam Constitutional: alert, oriented, well developed Psych: nl mood/affect, no complaints Head: atraumatic, normocephalic Eyes: EOMI, PERRL, nl conjunctiva, nl lids ENMT: nl external ears & nose, nl lips & teeth, nl nasal mucosa & septum Neck: non-tender, supple Respiratory: clear to auscultation, normal air movement Cardiovascular: nl pulses, regular rate and rhythm, No S3, No S4, No bruits, No diastolic murmur, No edema, No gallop, No irregular rhythm, No jugular venous distention (JVD), No murmurs/extra sounds, No rub, No systolic murmur Gastrointestinal: nl liver, spleen, non-tender, soft, No ascites, No bowel sounds, No distended, No firm, No hepatomegaly, No mass , No rebound or guarding, No splenomegaly, No surgical scars, No tender Musculoskeletal: nl extremities to inspection Neurological: SINKER PULLER II-XII intact, nl mental status, nl speech, nl strength Results Result Diagram: 06/21/16 0510 06/21/16 0510 Results 24 hrs Laboratory Tests Test 06/20/16 18:55 06/21/16 00:19 06/21/16 05:10 06/21/16 05:17 Bedside Glucose 125 143 132 Anion Gap 14 Basophils # 0.1 Basophils % 0.5 Blood Morphology Comment Blood Urea Nitrogen 29 H Calcium Level 8.1 L Carbon Dioxide Level 28 Chloride Level 102 Creatinine 0.57 Differential Comment AUTO w/SCAN Eosinophils # 0.4 Eosinophils % 1.9 Glucose Level 130 Hematocrit 25.3 L Hemoglobin 8.4 L Lymphocytes # 1.9 Lymphocytes % 9.7 L Mean Corpuscular Hemoglobin 29.3 Mean Corpuscular Hemoglobin Concent 33.3 Mean Corpuscular Volume 88.2 Mean Platelet Volume 9.4 Monocytes # 0.6 Monocytes % 3.1 Neutrophils # 16.7 H Neutrophils % 84.8 H Nucleated Red Blood Cells # 0.0 Nucleated Red Blood Cells % 0.0 Platelet Count 350 Potassium Level 4.3 Red Blood Count 2.86 L Red Cell Distribution Width 16.5 H Sodium Level 140 White Blood Count 19.7 H Test 06/21/16 12:16 Bedside Glucose 132 Medications Medications Current Medications Heparin Sodium (Porcine) (Heparin (5000 Units/0.5 ml)) 5,000 unit BID SC Last administered on 06/20/16 22:16; Admin Dose 5,000 UNIT; Start 06/16/16 at 09:00 Insulin Glargine (Lantus) 10 unit QHS SC Last administered on 06/20/16 22:19; Admin Dose 10 UNIT; Start 06/16/16 at 21:00 Miscellaneous Information 1 ea NOTE XX ; Start 06/16/16 at 00:00 Glucose (Glutose) 15 gm Q15M PRN PO DECREASED GLUCOSE; Start 06/16/16 at 00:00 Glucose (Glutose) 22.5 gm Q15M PRN PO DECREASED GLUCOSE; Start 06/16/16 at 00:00 Dextrose (D50w Syringe) 25 ml Q15M PRN IV DECREASED GLUCOSE; Start 06/16/16 at 00:00 Dextrose (D50w Syringe) 50 ml Q15M PRN IV DECREASED GLUCOSE; Start 06/16/16 at 00:00 Glucagon (Glucagen) 1 mg Q15M PRN IM DECREASED GLUCOSE; Start 06/16/16 at 00:00 Glucose (Glutose) 15 gm Q15M PRN BUCCAL DECREASED GLUCOSE; Start 06/16/16 at 00: 00 Miscellaneous Information (Flu Vaccine Previously Dispensed) FLU VACCINE PREVIOU... NOTE PRN XX NOTE; Start 06/16/16 at 04:30 Ascorbic Acid (Vitamin C) 500 mg DAILY GTB Last administered on 06/21/16 09:24 ; Admin Dose 500 MG; Start 06/16/16 at 09:00 Atorvastatin Calcium (Lipitor) 20 mg QHS GTB Last administered on 06/20/16 22: 14; Admin Dose 20 MG; Start 06/16/16 at 21:00 Docusate Sodium (Colace Liquid Cup) 100 mg BID GTB Last administered on 22:13; Admin Dose 100 MG; Start 06/16/16 at 09:00 Famotidine (Pepcid) 20 mg DAILY GTB Last administered on 06/21/16 09:24; Admin Dose 20 MG; Start 06/16/16 at 09:00 Risperidone (Risperdal) 1 mg DAILY GTB Last administered on 06/21/16 09:24; Admin Dose 1 MG; Start 06/16/16 at 09:00 Sertraline HCl (Zoloft) 100 mg DAILY GTB Last administered on 06/21/16 09:25; Admin Dose 100 MG; Start 06/16/16 at 09:00 Al Hydrox/Mg Hydrox/Simethicone (Mag-Al Plus) 30 ml Q6H PRN PO GAS/BLOATING; Start 06/16/16 at 12:30 Acetaminophen 650 mg 650 mg Q4H PRN GTB PAIN AND OR ELEVATED TEMP; Start at 10:00 Sodium Chloride (1/2 NS) 1,000 ml @ 75 mls/hr [id number] IV Last administered on 06/21/16 03:32; Admin Dose 75 MLS/HR; Start 06/18/16 at 14:00 Insulin Aspart (Novolog Insulin Pen) (Adult SC Insulin - Mild Algorithm)... Q6 SC Last administered on 06/21/16 00:41; Admin Dose 1 UNIT; Start 06/19/16 at 00: 00 Metronidazole 500 mg 500 mg Q8 GTB Last administered on 06/21/16 14:56; Admin Dose 500 MG; Start 06/19/16 at 14:00; Stop 06/29/16 at 13:59 Ceftriaxone Sodium (Rocephin) 50 ml @ 100 mls/hr Q24H IVPB Last administered on 06/21/16 12:17; Admin Dose 100 MLS/HR; Start 06/19/16 at 12:30 Vancomycin HCl (Vancomycin Oral Syringe) 250 mg Q6 PO Last administered on 12:16; Admin Dose 250 MG; Start 06/19/16 at 18:00 RICK DAVID MD Jun 21, 2016 15:36
--- NOTE | 2016-06-21 16:41 | CONS ---
Date/Time of Note Date/Time of Note DATE: 06/21/16 TIME: 16:40 Assessment/Plan Assessment/Plan Chief Complaint/Hosp Course SUBJECTIVE: No acute changes. Pt is awake, responsive, lying comfortably in bed , no fevers MICROBIOLOGY: Urine culture growing E. coli, stool + C dif ANTIMICROBIALS: The patient is on: 1. PO vancomycin. 2. Rocephin. 3. Flagyl INDWELLINGS: Gunter catheter, PEG. PHYSICAL EXAMINATION: GENERAL: This is a fragile, chronically ill-appearing, elderly woman who is nonverbal, noncommunicative. The patient is lying comfortably in bed. HEENT: Head atraumatic, normocephalic. Sclerae anicteric. Buccal mucosa dry. NECK: Supple, trachea midline. CHEST: Rise symmetrical. Breath sounds diminished to bases. HEART: S1, S2. ABDOMEN: Soft, bowel tones present. EXTREMITIES: No cyanosis. ASSESSMENT: 1. Sepsis . 2. Urinary tract infection. 3. Probable aspiration pneumonia. 4. Pulmonary edema. 5. Dysphagia. 6. Alzheimer dementia. 7. C dif colitis PLAN: Clinically improving. Continue abx, aspiration precautions, dc Rocephin soon DW staff/family at bedside Problems: Consultation Date/Type/Reason Admit Date/Time Jun 15, 2016 at 22:37 Type of Consultation: id Exam/Review of Systems Vital Signs Vitals Vital Signs Date Time Temp Pulse Resp B/P Pulse Ox O2 Delivery O2 Flow Rate FiO2 06/21/16 14:19 61 18 100 Nasal Cannula 2.0 06/21/16 07:55 98.4 162/66 Intake and Output 06/20/16 06/20/16 06/21/16 15:00 23:00 07:00 Intake Total 750 ml 1120 ml 1940 ml Output Total 1300 ml 2450 ml Balance 750 ml -180 ml -510 ml Results Result Diagram: 06/21/16 0510 06/21/16 0510 Results 24 hrs Laboratory Tests Test 06/20/16 18:55 06/21/16 00:19 06/21/16 05:10 06/21/16 05:17 Bedside Glucose 125 143 132 Anion Gap 14 Basophils # 0.1 Basophils % 0.5 Blood Morphology Comment Blood Urea Nitrogen 29 H Calcium Level 8.1 L Carbon Dioxide Level 28 Chloride Level 102 Creatinine 0.57 Differential Comment AUTO w/SCAN Eosinophils # 0.4 Eosinophils % 1.9 Glucose Level 130 Hematocrit 25.3 L Hemoglobin 8.4 L Lymphocytes # 1.9 Lymphocytes % 9.7 L Mean Corpuscular Hemoglobin 29.3 Mean Corpuscular Hemoglobin Concent 33.3 Mean Corpuscular Volume 88.2 Mean Platelet Volume 9.4 Monocytes # 0.6 Monocytes % 3.1 Neutrophils # 16.7 H Neutrophils % 84.8 H Nucleated Red Blood Cells # 0.0 Nucleated Red Blood Cells % 0.0 Platelet Count 350 Potassium Level 4.3 Red Blood Count 2.86 L Red Cell Distribution Width 16.5 H Sodium Level 140 White Blood Count 19.7 H Test 06/21/16 12:16 Bedside Glucose 132 Medications Medications Current Medications Heparin Sodium (Porcine) (Heparin (5000 Units/0.5 ml)) 5,000 unit BID SC Last administered on 06/20/16 22:16; Admin Dose 5,000 UNIT; Start 06/16/16 at 09:00 Insulin Glargine (Lantus) 10 unit QHS SC Last administered on 06/20/16 22:19; Admin Dose 10 UNIT; Start 06/16/16 at 21:00 Miscellaneous Information 1 ea NOTE XX ; Start 06/16/16 at 00:00 Glucose (Glutose) 15 gm Q15M PRN PO DECREASED GLUCOSE; Start 06/16/16 at 00:00 Glucose (Glutose) 22.5 gm Q15M PRN PO DECREASED GLUCOSE; Start 06/16/16 at 00:00 Dextrose (D50w Syringe) 25 ml Q15M PRN IV DECREASED GLUCOSE; Start 06/16/16 at 00:00 Dextrose (D50w Syringe) 50 ml Q15M PRN IV DECREASED GLUCOSE; Start 06/16/16 at 00:00 Glucagon (Glucagen) 1 mg Q15M PRN IM DECREASED GLUCOSE; Start 06/16/16 at 00:00 Glucose (Glutose) 15 gm Q15M PRN BUCCAL DECREASED GLUCOSE; Start 06/16/16 at 00: 00 Miscellaneous Information (Flu Vaccine Previously Dispensed) FLU VACCINE PREVIOU... NOTE PRN XX NOTE; Start 06/16/16 at 04:30 Ascorbic Acid (Vitamin C) 500 mg DAILY GTB Last administered on 06/21/16 09:24 ; Admin Dose 500 MG; Start 06/16/16 at 09:00 Atorvastatin Calcium (Lipitor) 20 mg QHS GTB Last administered on 06/20/16 22: 14; Admin Dose 20 MG; Start 06/16/16 at 21:00 Docusate Sodium (Colace Liquid Cup) 100 mg BID GTB Last administered on 22:13; Admin Dose 100 MG; Start 06/16/16 at 09:00 Famotidine (Pepcid) 20 mg DAILY GTB Last administered on 06/21/16 09:24; Admin Dose 20 MG; Start 06/16/16 at 09:00 Risperidone (Risperdal) 1 mg DAILY GTB Last administered on 06/21/16 09:24; Admin Dose 1 MG; Start 06/16/16 at 09:00 Sertraline HCl (Zoloft) 100 mg DAILY GTB Last administered on 06/21/16 09:25; Admin Dose 100 MG; Start 06/16/16 at 09:00 Al Hydrox/Mg Hydrox/Simethicone (Mag-Al Plus) 30 ml Q6H PRN PO GAS/BLOATING; Start 06/16/16 at 12:30 Acetaminophen 650 mg 650 mg Q4H PRN GTB PAIN AND OR ELEVATED TEMP; Start at 10:00 Sodium Chloride (1/2 NS) 1,000 ml @ 75 mls/hr [id number] IV Last administered on 06/21/16 03:32; Admin Dose 75 MLS/HR; Start 06/18/16 at 14:00 Insulin Aspart (Novolog Insulin Pen) (Adult SC Insulin - Mild Algorithm)... Q6 SC Last administered on 06/21/16 00:41; Admin Dose 1 UNIT; Start 06/19/16 at 00: 00 Metronidazole 500 mg 500 mg Q8 GTB Last administered on 06/21/16 14:56; Admin Dose 500 MG; Start 06/19/16 at 14:00; Stop 06/29/16 at 13:59 Ceftriaxone Sodium (Rocephin) 50 ml @ 100 mls/hr Q24H IVPB Last administered on 06/21/16 12:17; Admin Dose 100 MLS/HR; Start 06/19/16 at 12:30 Vancomycin HCl (Vancomycin Oral Syringe) 250 mg Q6 PO Last administered on t 12:16; Admin Dose 250 MG; Start 06/19/16 at 18:00 EPHRAIM RYAN NP Jun 21, 2016 16:41
[2016-06-21 19:00] VITALS: BP 130/58; RESP 20
[2016-06-21] MEDS: ATORVASTATIN 20 MG TAB GTB SCH (20:41)
[2016-06-21] MEDS: INSULIN GLARGINE [LANtus] 3 ML PEN SC SCH (20:51)
[2016-06-22] MEDS: VANCOMYCIN HCL 250 MG/5ML POSYG PO SCH ×4 (00:38→18:18)
[2016-06-22] MEDS: ALBUTEROL/IPRATROPIUM (NEB) 3 ML AMP INH SCH ×3 (01:13→14:00)
[2016-06-22] MEDS: metroNIDAZOLE 500 MG TAB GTB SCH ×2 (05:18→13:24)
[2016-06-22] MEDS: Insulin NOVOLOG SS MILD Algorithm (NPO/TPN/ENTERAL FEEDS) SC SCH ×3 (05:19→17:53)
[2016-06-22 06:44] LABS: BASOPHILS % 0.2 % (0.0-2.0); EOSINOPHILS # 0.3 10^3/ul (0.0-0.5); HEMATOCRIT 27.9 % (37.0-47.0); HEMOGLOBIN 9.2 g/dl (12.0-16.0); LYMPHOCYTES # 2.1 10^3/ul (0.8-2.9); LYMPHOCYTES % 14.1 % (15.0-51.0); MEAN CORPUSCULAR HEMOGLOBIN 29.5 pg (29.0-33.0); MEAN CORPUSCULAR HGB CONC 33.1 g/dl (32.0-37.0); MEAN PLATELET VOLUME 9.1 fl (7.4-10.4); MONOCYTE # 0.1 10^3/ul (0.3-0.9); MONOCYTES % 0.6 % (0.0-11.0); NEUTROPHIL # 12.6 10^3/ul (1.6-7.5); NEUTROPHILS % 83.1 % (39.0-77.0); PLATELET COUNT 365 10^3/UL (140-440); RED BLOOD COUNT 3.13 10^6/ul (4.20-5.40); RED CELL DISTRIBUTION WIDTH 16.5 % (11.5-14.5); UNCORRECTED WBC 15.1 10^3/ul (4.8-10.8); WHITE BLOOD COUNT 15.1 10^3/ul (4.8-10.8)
[2016-06-22 06:52] LABS: POTASSIUM 4.5 mmol/L (3.5-5.1)
[2016-06-22 06:54] LABS: CREATININE 0.62 mg/dl (0.44-1.00)
[2016-06-22 06:55] LABS: CALCIUM 8.5 mg/dl (8.4-10.2)
[2016-06-22 07:19] LABS: CONDITION 1; LH ANALYZER COMMENTS 1
[2016-06-22] MEDS: ASCORBIC ACID 500 MG TAB GTB SCH (08:12)
[2016-06-22] MEDS: SERTRALINE 100 MG TAB GTB SCH (08:12)
[2016-06-22] MEDS: FAMOTIDINE 20 MG TAB GTB SCH (08:12)
[2016-06-22] MEDS: RISPERIDONE 1 MG TAB GTB SCH (08:12)
[2016-06-22] MEDS: DOCUSATE SODIUM 10 MG/ML (10ML CUP) GTB SCH (08:12)
[2016-06-22 08:35] VITALS: BP 112/74; RESP 20
[2016-06-22] MEDS: HEPARIN 5,000 UNIT/0.5 ML SYG SC SCH (08:50)
[2016-06-22] MEDS: SOD CHLORIDE 0.45% 1,000 ML IV SCH (11:20)
[2016-06-22] MEDS: CEFTRIAXONE 1 GM/50 ML (PMX) 50 ML IVPB SCH (12:22)
[2016-06-22] MEDS ORDERED: Vancomycin Oral Syringe PO (13:30)
[2016-06-22] MEDS ORDERED: NOVO3I SC (13:30)
[2016-06-22] MEDS ORDERED: CEFT1PIG2 IVPB (13:30)
[2016-06-22] MEDS ORDERED: HEP5KI SC (13:30)
--- NOTE | 2016-06-22 13:37 | DS ---
Date/Time of Note Date/Time of Note DATE: 06/22/16 TIME: 13:32 Discharge Summary Admission/Discharge Info Admit Date/Time Jun 15, 2016 at 22:37 Discharge Date/Time Final Diagnosis 1. Urinary tract infection, E. Coli, on rocephin for 5 days 2. Sepsis, resolved 3. Diabetes mellitus, on insulins 3. Alzheimer dementia. She is on Sertraline and Risperidone. 4. High cholesterol. Continue statin. 5. Tremor, likely Parkinson's, follow up with PCP 6. Hypertension. stable 7. Dysphagia, s/p PEG with tube feeding 8. C. Diff colitis, on oral vancomycin Patient Condition: Stable Hospital Course The patient is an 86-year-old female with a history of diabetes, hypertension, dyslipidemia, Alzheimer dementia, Parkinson's disease ____ assisted facility with a fever of 101 and leukocytosis. UA with WBC >200. Urine culture positive to E. Coli that is resistant to levaquin. She has been on rocephin and will continue it for 5 more days. Patient is found of having C. Diff colitis that gives her persistent leukocytosis. She is on oral vancomycin. Home Meds Active Scripts Ceftriaxone Sod* (Rocephin* 1GM/50ML (PMX)) 1 Gm/50 Ml Iv.soln., 1 GM IVPB Q24H for 5 Days, EA Prov:RICK DAVID MD 06/22/16 Insulin Aspart* (Novolog Insulin Pen*) 100 Unit/Ml Soln, 0 UNIT SC Q6 for 30 Days Prov:RICK DAVID MD 06/22/16 [Vancomycin Oral Syringe] 50 MG/ML SOLN No Conflict Check, 250 MG PO Q6 for 10 Days Prov:RICK DAVID MD 06/22/16 Heparin Sod (Porcine)* (Heparin*) 5,000 Unit/0.5 Ml Soln, 5000 UNIT SC BID for 10 Days Prov:RICK DAVID MD 06/22/16 Reported Medications Docusate Sodium* (Docusate Sodium* Liq) 50 Mg/5 Ml Liquid, 100 MG GTB BID, ML 06/15/16 Mag Hydrox/Al Hydrox/Simeth (Maalox Advanced Suspension) Unknown Strength Oral.susp, 30 ML GTB Q6H Y for PRN 06/15/16 Ipratropium-Albuterol (Ipratropium-Albuterol) 0.5-3 Mg/3 Ml Ampul.neb, 3 ML INHALATION Q6, #30 VIAL 06/15/16 Amino Acids/Protein Hydrolys (PRO-STAT LIQUID) 30 Ml Liquid.pkt, 30 ML GTB TID 06/15/16 Ascorbic Acid* (Vitamin C* Liq) 500 Mg/5 Ml Syrup, 500 MG GTB DAILY, ML 06/15/16 Insulin Glargine* (Lantus*) 100 Unit/Ml Soln, 10 UNIT SC QHS, #1 VIAL 06/15/16 Cranberry Fruit (CRANBERRY) 450 Mg Tablet, 450 MG GTB DAILY, TAB 06/15/16 Famotidine* (Pepcid*) 20 Mg Tablet, 20 MG GTB DAILY, #30 TAB 03/22/16 Atorvastatin Calcium* (Atorvastatin Calcium*) 20 Mg Tablet, 20 MG GTB QHS, #30 TAB 03/22/16 Sertraline Hcl* (Sertraline Hcl*) 100 Mg Tablet, 100 MG GTB DAILY, #30 TAB 03/07/16 Risperidone* (Risperidone*) 1 Mg Tablet, 1 MG GTB DAILY, TAB 03/07/16 Discontinued Reported Medications Ciprofloxacin Hcl* (Ciprofloxacin Hcl*) 500 Mg Tablet, 500 MG PO BID, #14 TAB 03/22/16 Gabapentin* (Gabapentin*) 100 Mg Capsule, 200 MG PO TID, #180 CAP 03/22/16 Magnesium Hydroxide* (Milk Of Magnesia*) 400 Mg/5 Ml Oral.susp, 30 ML PO DAILY Y for CONSTIPATION, ML 03/22/16 Hydrocodone/Acetaminophen ([place] 5-325 Tablet) 1 Each Tablet, 2 EACH PO Q6 Y for SEVERE PAIN LEVEL 7-10, TAB 03/22/16 Hydrocodone/Acetaminophen ([place] 5-325 Tablet) 1 Each Tablet, 1 EACH PO Q6 Y for MODERATE PAIN LEVEL 4-6, TAB 03/22/16 Enoxaparin Sodium* (Lovenox*) 30 Mg/0.3 Ml Disp.syrin, 30 MG SQ DAILY, SYR 03/22/16 Docusate Sodium* (Colace*) 100 Mg Capsule, 100 MG PO BID, #60 CAP 03/22/16 Bisacodyl* (Dulcolax*) 5 Mg Tablet.dr, 5 MG PO DAILY, TAB 03/22/16 Acetaminophen* (Acetaminophen*) 650 Mg Tablet, 650 MG PO Q6H Y for PAIN AND OR ELEVATED TEMP, #30 TAB 03/22/16 Amlodipine Besylate* (Norvasc*) 5 Mg Tablet, 5 MG PO DAILY, TAB 03/07/16 Losartan-Hydrochlorothiazide (Losartan-HCTZ) 50-12.5 Mg Tab, 1 TAB PO DAILY, TAB 03/07/16 Diphenhydramine Hcl* (Diphenhydramine Hcl*) 25 Mg Capsule, 25 MG PO TID Y for ITCHING, CAP 03/07/16 Sennosides* (Senna Lax*) 8.6 Mg Tablet, 2 TAB PO DAILY, TAB 03/07/16 Bisacodyl* (Bisacodyl*) 5 Mg Tablet.dr, 5 MG PO DAILY, TAB 03/07/16 Pantoprazole* (Pantoprazole*) 40 Mg Tablet.dr, 40 MG PO DAILY, TAB 03/07/16 Follow-up Plan transfer to [facility] Pending Labs Laboratory Tests Test 06/21/16 17:06 06/21/16 20:41 06/21/16 23:52 06/22/16 05:19 Bedside Glucose 101mg/dL (70-220) 134mg/dL (70-220) 141mg/dL (70-220) 132mg/dL (70-220) Test 06/22/16 05:20 06/22/16 12:12 Anion Gap 17 (8-16) Basophils # 0.010^3/ul (0.0-0.1) Basophils % 0.2% (0.0-2.0) Blood Morphology Comment Blood Urea Nitrogen 29mg/dl (7-20) Calcium Level 8.5mg/dl (8.4-10.2) Carbon Dioxide Level 29mmol/L (21-31) Chloride Level 103mmol/L (97-110) Creatinine 0.62mg/dl (0.44-1.00) Eosinophils # 0.310^3/ul (0.0-0.5) Eosinophils % 2.0% (0.0-7.0) Glucose Level 126mg/dl (70-220) Hematocrit 27.9% (37.0-47.0) Hemoglobin 9.2g/dl (12.0-16.0) Lymphocytes # 2.110^3/ul (0.8-2.9) Lymphocytes % 14.1% (15.0-51.0) Mean Corpuscular Hemoglobin 29.5pg (29.0-33.0) Mean Corpuscular Hemoglobin Concent 33.1g/dl (32.0-37.0) Mean Corpuscular Volume 89.0fl (82.0-101.0) Mean Platelet Volume 9.1fl (7.4-10.4) Monocytes # 0.110^3/ul (0.3-0.9) Monocytes % 0.6% (0.0-11.0) Neutrophils # 12.610^3/ul (1.6-7.5) Neutrophils % 83.1% (39.0-77.0) Nucleated Red Blood Cells # 0.010^3/ul (0.0-0.0) Nucleated Red Blood Cells % 0.0/100WBC (0.0-0.0) Platelet Count 01254^3/UL (140-440) Potassium Level 4.5mmol/L (3.5-5.1) Red Blood Count 3.1310^6/ul (4.20-5.40) Red Cell Distribution Width 16.5% (11.5-14.5) Sodium Level 144mmol/L (135-144) White Blood Count 15.110^3/ul (4.8-10.8) Bedside Glucose 118mg/dL (70-220) RICK DAVID MD Jun 22, 2016 13:37
--- NOTE | 2016-06-22 13:49 | CONS ---
Date/Time of Note Date/Time of Note DATE: 06/22/16 TIME: 13:48 Assessment/Plan Assessment/Plan Chief Complaint/Hosp Course SUBJECTIVE: No acute changes. Pt is awake, responsive, lying comfortably in bed , no fevers MICROBIOLOGY: Urine culture growing E. coli, stool + C dif ANTIMICROBIALS: The patient is on: 1. PO vancomycin. 2. Rocephin. 3. Flagyl INDWELLINGS: Gunter catheter, PEG. PHYSICAL EXAMINATION: GENERAL: This is a fragile, chronically ill-appearing, elderly woman who is nonverbal, noncommunicative. The patient is lying comfortably in bed. HEENT: Head atraumatic, normocephalic. Sclerae anicteric. Buccal mucosa dry. NECK: Supple, trachea midline. CHEST: Rise symmetrical. Breath sounds diminished to bases. HEART: S1, S2. ABDOMEN: Soft, bowel tones present. EXTREMITIES: No cyanosis. ASSESSMENT: 1. Sepsis==> resolving . 2. Urinary tract infection. 3. Probable aspiration pneumonia. 4. Pulmonary edema. 5. Dysphagia. 6. Alzheimer dementia. 7. C dif colitis PLAN: Clinically improving. Continue abx, aspiration precautions, dc Rocephin soon [facility] staff/family at bedside Problems: Consultation Date/Type/Reason Admit Date/Time Jun 15, 2016 at 22:37 Type of Consultation: id Exam/Review of Systems Vital Signs Vitals Vital Signs Date Time Temp Pulse Resp B/P Pulse Ox O2 Delivery O2 Flow Rate FiO2 06/22/16 08:39 68 16 95 Nasal Cannula 1.0 06/22/16 08:35 98.4 112/74 Intake and Output 06/21/16 06/21/16 06/22/16 15:00 23:00 07:00 Intake Total 987 ml 1940 ml Output Total 1250 ml 1300 ml Balance -263 ml 640 ml Results Result Diagram: 06/22/16 0520 06/22/16 0520 Results 24 hrs Laboratory Tests Test 06/21/16 17:06 06/21/16 20:41 06/21/16 23:52 06/22/16 05:19 Bedside Glucose 101 134 141 132 Test 06/22/16 05:20 06/22/16 12:12 Anion Gap 17 H Basophils # 0.0 Basophils % 0.2 Blood Morphology Comment Blood Urea Nitrogen 29 H Calcium Level 8.5 Carbon Dioxide Level 29 Chloride Level 103 Creatinine 0.62 Eosinophils # 0.3 Eosinophils % 2.0 Glucose Level 126 Hematocrit 27.9 L Hemoglobin 9.2 L Lymphocytes # 2.1 Lymphocytes % 14.1 L Mean Corpuscular Hemoglobin 29.5 Mean Corpuscular Hemoglobin Concent 33.1 Mean Corpuscular Volume 89.0 Mean Platelet Volume 9.1 Monocytes # 0.1 L Monocytes % 0.6 Neutrophils # 12.6 H Neutrophils % 83.1 H Nucleated Red Blood Cells # 0.0 Nucleated Red Blood Cells % 0.0 Platelet Count 365 Potassium Level 4.5 Red Blood Count 3.13 L Red Cell Distribution Width 16.5 H Sodium Level 144 White Blood Count 15.1 #H Bedside Glucose 118 Medications Medications Current Medications Heparin Sodium (Porcine) (Heparin (5000 Units/0.5 ml)) 5,000 unit BID SC Last administered on 06/22/16 08:50; Admin Dose 5,000 UNIT; Start 06/16/16 at 09:00 Insulin Glargine (Lantus) 10 unit QHS SC Last administered on 06/21/16 20:51; Admin Dose 10 UNIT; Start 06/16/16 at 21:00 Miscellaneous Information 1 ea NOTE XX ; Start 06/16/16 at 00:00 Glucose (Glutose) 15 gm Q15M PRN PO DECREASED GLUCOSE; Start 06/16/16 at 00:00 Glucose (Glutose) 22.5 gm Q15M PRN PO DECREASED GLUCOSE; Start 06/16/16 at 00:00 Dextrose (D50w Syringe) 25 ml Q15M PRN IV DECREASED GLUCOSE; Start 06/16/16 at 00:00 Dextrose (D50w Syringe) 50 ml Q15M PRN IV DECREASED GLUCOSE; Start 06/16/16 at 00:00 Glucagon (Glucagen) 1 mg Q15M PRN IM DECREASED GLUCOSE; Start 06/16/16 at 00:00 Glucose (Glutose) 15 gm Q15M PRN BUCCAL DECREASED GLUCOSE; Start 06/16/16 at 00: 00 Miscellaneous Information (Flu Vaccine Previously Dispensed) FLU VACCINE PREVIOU... NOTE PRN XX NOTE; Start 06/16/16 at 04:30 Ascorbic Acid (Vitamin C) 500 mg DAILY GTB Last administered on 06/22/16 08:12 ; Admin Dose 500 MG; Start 06/16/16 at 09:00 Atorvastatin Calcium (Lipitor) 20 mg QHS GTB Last administered on 06/21/16 20: 41; Admin Dose 20 MG; Start 06/16/16 at 21:00 Docusate Sodium (Colace Liquid Cup) 100 mg BID GTB Last administered on 08:12; Admin Dose 100 MG; Start 06/16/16 at 09:00 Famotidine (Pepcid) 20 mg DAILY GTB Last administered on 06/22/16 08:12; Admin Dose 20 MG; Start 06/16/16 at 09:00 Risperidone (Risperdal) 1 mg DAILY GTB Last administered on 06/22/16 08:12; Admin Dose 1 MG; Start 06/16/16 at 09:00 Sertraline HCl (Zoloft) 100 mg DAILY GTB Last administered on 06/22/16 08:12; Admin Dose 100 MG; Start 06/16/16 at 09:00 Al Hydrox/Mg Hydrox/Simethicone (Mag-Al Plus) 30 ml Q6H PRN PO GAS/BLOATING; Start 06/16/16 at 12:30 Acetaminophen 650 mg 650 mg Q4H PRN GTB PAIN AND OR ELEVATED TEMP Last administered on 06/22/16 12:22; Admin Dose 650 MG; Start 06/18/16 at 10:00 Sodium Chloride (1/2 NS) 1,000 ml @ 75 mls/hr [id number] IV Last administered on 06/21/16 17:10; Admin Dose 75 MLS/HR; Start 06/18/16 at 14:00 Insulin Aspart (Novolog Insulin Pen) (Adult SC Insulin - Mild Algorithm)... Q6 SC Last administered on 06/21/16 23:55; Admin Dose 1 UNIT; Start 06/19/16 at 00: 00 Metronidazole 500 mg 500 mg Q8 GTB Last administered on 06/22/16 13:24; Admin Dose 500 MG; Start 06/19/16 at 14:00; Stop 06/29/16 at 13:59 Ceftriaxone Sodium (Rocephin) 50 ml @ 100 mls/hr Q24H IVPB Last administered on 06/22/16 12:22; Admin Dose 100 MLS/HR; Start 06/19/16 at 12:30 Vancomycin HCl (Vancomycin Oral Syringe) 250 mg Q6 PO Last administered on t 13:23; Admin Dose 250 MG; Start 06/19/16 at 18:00 EPHRAIM RYAN NP Jun 22, 2016 13:49
[2016-06-22 19:56] VITALS: BP 118/50; RESP 18
== END 2016-06-22 19:40 | DRG 872 ==
LOC: E/R 19:19 → TEL 22:37 → MS2 06-17 22:40
PROVIDERS: ADMIT Internal Medicine; ATTEND Internal Medicine
DX: A41.51 Sepsis due to Escherichia coli [E. coli] (principal); L89.152 Pressure ulcer of sacral region, stage 2; A04.7 Enterocolitis due to Clostridium difficile; G20 Parkinson's disease; R13.10 Dysphagia, unspecified; I11.9 Hypertensive heart disease without heart failure; L89.610 Pressure ulcer of right heel, unstageable; Z93.1 Gastrostomy status; N39.0 Urinary tract infection, site not specified; G30.1 Alzheimer's disease with late onset; F02.80 Dementia in other diseases classified elsewhere, unspecified severity, without behavioral disturbance, psychotic disturbance, mood disturbance, and anxiety; E78.5 Hyperlipidemia, unspecified; E11.9 Type 2 diabetes mellitus without complications; F32.9 Major depressive disorder, single episode, unspecified; E78.00 Pure hypercholesterolemia, unspecified; Z16.23 Resistance to quinolones and fluoroquinolones; D64.9 Anemia, unspecified; Z22.322 Carrier or suspected carrier of Methicillin resistant Staphylococcus aureus
CPT/HCPCS: 36415; 71010; 76775; 80048; 80053; 80202; 81001; 81003; 82728; 82962; 83540; 83605; 84484; 85025; 85610; 85730; 87040; 87045; 87075; 87081; 87086; 93005; 94640; 94664; 96374; 96375; J0696; J0744; J1815; J3370; J7030; J7050